=== PATIENT | male | born 1950 | race Caucasian/White ===

== ENCOUNTER 2019-08-10 11:22 | Inpatient (IN) | payer OTHER ==
[~2019-08-10] VITALS: Ht 203.2 cm; Wt 161.7 kg
[2019-08-10] MEDS ORDERED: SODIUM CHLORIDE 0.9% 1,000 ML IV ONE (13:09)
[2019-08-10] MEDS ORDERED: MIDAZOLAM DRIP 50 mg/50mL 50 ML IV SCH (13:44)
[2019-08-10] MEDS ORDERED: ETOMIDATE (2MG/ML) 20ML VIAL IV ONE (13:45)
[2019-08-10] MEDS ORDERED: SUCCINYLCHOLINE CHLORIDE 20 MG/ML 10ML VIAL IV ONE (13:45)
[2019-08-10 14:08] LABS: Basophils # (auto) 0.1 10 ^3/uL (0-0.2); Basophils % (auto) 0.3 % (0.0-2.0); Eosinophils # (auto) 0 10 ^3/uL (0-0.8); Eosinophils % (auto) 0.2 % (0.0-7.0); Hematocrit 40.7 % (41.0-53.0); Hemoglobin 13.4 g/dL (13.5-17.5); Lymphocytes # (auto) 0.7 10 ^3/uL (0.4-5.4); Lymphocytes % (auto) 3.4 % (10.0-50.0); Mean Corpuscular Hemoglobin 30.1 pg (28.0-32.0); Mean Corpuscular Volume 91.2 fL (80.0-100.0); Monocytes # (auto) 1.1 10 ^3/uL (0-1.3); Monocytes % (auto) 5.6 % (0.0-12.0); Neutrophils # (auto) 17.6 10 ^3/uL (1.6-8.6); Neutrophils % (auto) 90.5 % (37.0-80.0); Platelet Count (auto) 230 10^3/uL (140-450); Red Blood Cells 4.47 10^6/uL (4.5-5.90); White Blood Cell 19.5 10^3/uL (4.4-10.8)
[2019-08-10 14:12] LABS: Lactic Acid w/Reflex 2.6 mmol/L (0.4-2.0)
[2019-08-10 14:45] LABS: Albumin 3.5 g/dL (3.4-5.0); Calcium 9.4 mg/dL (8.5-10.1); Potassium 4.4 mmol/L (3.5-5.1)
[2019-08-10] MEDS ORDERED: ACETAMINOPHEN 650 MG RECT SUPP PR ONE (14:47)
[2019-08-10 14:50] LABS: BUN/Creatinine Ratio 13.5; Bilirubin, Total 0.6 mg/dL (0.2-1.0); Total Protein 8.4 g/dL (6.4-8.2)
[2019-08-10 15:01] VITALS: BP 150/61
--- NOTE | 2019-08-10 15:09 | NUR ---
Respiratory note: PATIENT INTUBATED BY PREM FOSTER RRT, WITH A 7.5 ETT, FOR IMPENDING RESPIRATORY FAILURE. TUBE PLACEMENT VERIFIED WITH POSITIVE COLOR CHANGE ON CO2 DETECTOR, BILATERAL BREATH SOUNDS WERE HEARD, AND CONDENSATION WAS SEEN IN THE ETT. TUBE SECURED VIA RAUL AT THE 24CM MARKING AT THE LIP. AWAITING CXR FOR DEPTH CONFIRMATION. PATIENT WAS PLACED ON V14 ESPRIT VENT WITH THE CHARTED SETTINGS. SPO2 100%, LUNG SOUNDS DIM T/O, THICK DRY DARK YELLOW SECRETIONS WHEN SUCTIONED. SPUTUM SAMPLE COLLECTED AND SENT TO THE LAB. SKIN IS WARM/HOT TO THE TOUCH AND THERE IS BILATERAL UPPER EXTREMITY SWELLING, WELL BILATERAL LOWER EXTREMITY SWELLING. A TRIPLE LUMEN CENTRAL LINE WAS PLACED IN THE RIGHT IJ BY DR. ESPITIA AT THIS TIME. PATIENT SHOWING RESPONSE TO TACTILE STIMULI AND IS SEDATED ON A VERSED DRIP. HE IS TOLERATING VENT WELL. VENT PLUGGED INTO RED OUTLET AND ALL ALARMS ARE SET AND AUDIBLE. WILL CONTINUE TO ASSESS PATIENT WELL VENTILATOR FUNCTION. ABG DRAWN AND RESULTS REPORTED TO DR. ESPITIA.
[2019-08-10 15:35] LABS: Urine WBC None Seen /hpf (0 - 3)
[2019-08-10 15:41] LABS: Urine Bacteria NONE SEEN /hpf (None Seen); Urine Blood 1+ /uL (Negative); Urine Hyaline Cast FEW /lpf (0 - 2); Urine Specific Gravity 1.015 (1.001-1.035)
[2019-08-10] MEDS ORDERED: NITROGLYCERIN 0.4 MG SL TAB SL PRN (15:45)
[2019-08-10] MEDS ORDERED: MORPHINE SULF INJ 2 MG/ML SYRINGE 1ML IV PRN (15:45)
[2019-08-10] MEDS ORDERED: fentaNYL Drip 2500mCg/250mlNS 250 ML IV SCH (15:45)
[2019-08-10] MEDS ORDERED: VANCOMYCIN PER PHARMACY 0 MG IV SCH (15:45)
[2019-08-10] MEDS ORDERED: DEXTROSE (50%) 50ML SYRG IV PRN (15:45)
[2019-08-10 15:56] VITALS: BP 127/54
[2019-08-10] MEDS: SODIUM CHLORIDE 0.9% 1,000 ML IV SCH (16:00)
[2019-08-10] MEDS ORDERED: MIDAZOLAM DRIP 50 mg/50mL 50 ML IV ONE (16:13)
[2019-08-10] MEDS: fentaNYL Drip 2500mCg/250mlNS 250 ML IV SCH (16:21)
[2019-08-10] MEDS: ACCU-CHEK COMFORT CURVE STRIP VI SCH ×2 (17:26→23:23)
[2019-08-10] MEDS: VANCOMYCIN 1GM/250ML 250 ML IV SCH (17:27)
[2019-08-10] MEDS: PROPOFOL 100 ML IV SCH ×2 (17:29→22:48)
[2019-08-10] MEDS: InsuLIN REG 1unit/0.01ml Soln (100units/ml) SC SCH ×2 (17:30→23:24)
[2019-08-10 18:40] VITALS: BP 104/34
[2019-08-10 20:30] VITALS: BP 112/48
[2019-08-10 22:30] VITALS: BP 131/50
[2019-08-10 23:07] VITALS: BP 107/46
[2019-08-11] VITALS (12 sets, daily range): BP systolic 102–158; BP diastolic 42–67
[2019-08-11] MEDS: SODIUM CHLORIDE 0.9% 1,000 ML IV SCH ×2 (01:44→11:49)
[2019-08-11] MEDS: VANCOMYCIN 1GM/250ML 250 ML IV SCH (03:00)
[2019-08-11 06:33] LABS: Basophils # (auto) 0 10 ^3/uL (0-0.2); Basophils % (auto) 0.2 % (0.0-2.0); Eosinophils # (auto) 0 10 ^3/uL (0-0.8); Hemoglobin 11.7 g/dL (13.5-17.5); Lymphocytes # (auto) 0.7 10 ^3/uL (0.4-5.4); Lymphocytes % (auto) 4.3 % (10.0-50.0); Mean Corpuscular Hemoglobin 30.1 pg (28.0-32.0); Mean Corpuscular Hgb Conc. 32.5 g/dL (32.0-36.0); Mean Corpuscular Volume 92.6 fL (80.0-100.0); Monocytes # (auto) 1.7 10 ^3/uL (0-1.3); Monocytes % (auto) 10.1 % (0.0-12.0); Neutrophils # (auto) 14.3 10 ^3/uL (1.6-8.6); Neutrophils % (auto) 85.4 % (37.0-80.0); Platelet Count (auto) 185 10^3/uL (140-450); Red Blood Cells 3.88 10^6/uL (4.5-5.90); Red Cell Distribution Width 15.6 % (11.8-14.3); White Blood Cell 16.8 10^3/uL (4.4-10.8)
[2019-08-11 06:56] LABS: Albumin 2.6 g/dL (3.4-5.0); Calcium 8.1 mg/dL (8.5-10.1)
[2019-08-11 06:59] LABS: BUN/Creatinine Ratio 16.3
[2019-08-11 07:02] LABS: Bilirubin, Total 0.7 mg/dL (0.2-1.0); Total Protein 6.8 g/dL (6.4-8.2)
[2019-08-11] MEDS: InsuLIN REG 1unit/0.01ml Soln (100units/ml) SC SCH ×4 (07:57→21:59)
[2019-08-11] MEDS: ACCU-CHEK COMFORT CURVE STRIP VI SCH ×4 (07:58→21:37)
[2019-08-11] MEDS ORDERED: cefTRIAXone SOD 1,000 MG VL ONE (08:41)
[2019-08-11] MEDS ORDERED: cefTRIAXone 1GM/50ML D5W 50 ML IV SCH (09:00)
--- NOTE | 2019-08-11 11:06 | NUR ---
WOUND CARE NOTE: Wound care in to see patient per wound care request regarding left lower wounds that are noted present on admission. Patient is 68 years old male with admitting diagnosis of Sepsis. Patient is resting in hospital bed in ER bed#18. He's intubated,sedated and mechanically ventilated. Patient appears to be in no pain using Angelo Velazquez Faces Pain Scale. His Nito score is 12. Patient's bedside nurse, JILLIAN Schwarz at bedside reported that patient's just transferred from [facility] to hospital bed and no skin Patient's BLE noted with edema and erythema. 1.5x3cm intact serum filled blister noted on patient's Rt knee. His Lt knee has superficial abrasion, area is clean and dry, left open to air. Two draining, open partial thickness wounds noted on patient's left anterodistal lower leg (0.8x0.8cm) and distal anterolateral lower leg (1.5x1.5cm). Wounds are red with with bright, edematous kamila wound, minimal serous drainage noted. No odor noted however, staff reported that odor noted on patient's L lateral lower leg wound earlier prior wound cleaning by his nurse. Cleansed patient's LLE wounds with NS, took specimen for wound culture and sent to lab for processing. Applied Thera honey gauze to open wounds and covered with Opti foam gentle dressing. Photograph of patient's wounds are taken for reference. Patient tolerated. RECOMMENDATION: Nursing to continue with EOD/PRN dressing change to LLE wounds per MD order; BID/PRN cleaning and application of Barrier cream to sacral, buttocks as preventative ,Dietary consult for wounds and low Nito score of 12,frequent turning and repositioning schedule as condition permits, redistribute pressure points with pillows,elevate edematous extremity on pillows, continue monitoring by wound care while patient is hospitalized. Addendum: 08/11/19 at 1455 by Dorie Peres RN Amended: Links added.
[2019-08-11] MEDS ORDERED: VANCOMYCIN 1GM/250ML 250 ML IV SCH (12:00)
[2019-08-11] MEDS ORDERED: CATHFLO ACTIVASE (ALTEPLASE) 2 MG VIAL IV ONE ×2 (14:45→14:48)
[2019-08-11] MEDS: fentaNYL Drip 2500mCg/250mlNS 250 ML IV SCH ×2 (15:58→22:56)
[2019-08-11] MEDS: NOREPINEPHRINE 8 MG/250ML KIT 250 ML IV SCH (17:30)
[2019-08-11] MEDS ORDERED: MEROPENEM 1GM IVPB 100 ML IV ONE (18:00)
[2019-08-11] MEDS ORDERED: LINEZOLID 600MG/300ML 300 ML IV SCH (18:00)
[2019-08-11] MEDS ORDERED: ENOXAPARIN SOD 40 MG/0.4 ML SYRINGE SC ONE (18:00)
[2019-08-11] MEDS: PROPOFOL 100 ML IV SCH ×3 (20:48→23:40)
[2019-08-11] MEDS ORDERED: SODIUM BICARBONATE 8.4 % INJ 50ML VIAL IV ONE (21:15)
[2019-08-11] MEDS ORDERED: FUROSEMIDE 40 MG/4 ML VIAL IV ONE (21:30)
[2019-08-11] MEDS: MEROPENEM 1GM IVPB 100 ML IV SCH (22:39)
[2019-08-12] VITALS (71 sets, daily range): BP systolic 94–155; BP diastolic 38–83
[2019-08-12] MEDS: PROPOFOL 100 ML IV SCH ×7 (02:35→23:20)
[2019-08-12] MEDS ORDERED: LINEZOLID 600MG/300ML 300 ML IV SCH (03:00)
[2019-08-12] MEDS: ACETAMINOPHEN 325 MG TAB PO PRN (03:03)
[2019-08-12] MEDS: MEROPENEM 1GM IVPB 100 ML IV SCH (05:46)
[2019-08-12 06:52] LABS: Basophils # (auto) 0 10 ^3/uL (0-0.2); Basophils % (auto) 0.3 % (0.0-2.0); Eosinophils # (auto) 0.1 10 ^3/uL (0-0.8); Eosinophils % (auto) 0.8 % (0.0-7.0); Hematocrit 33.6 % (41.0-53.0); Hemoglobin 10.9 g/dL (13.5-17.5); Lymphocytes # (auto) 1.1 10 ^3/uL (0.4-5.4); Lymphocytes % (auto) 7.9 % (10.0-50.0); Mean Corpuscular Hemoglobin 30.2 pg (28.0-32.0); Mean Corpuscular Hgb Conc. 32.6 g/dL (32.0-36.0); Mean Corpuscular Volume 92.6 fL (80.0-100.0); Monocytes # (auto) 1.3 10 ^3/uL (0-1.3); Monocytes % (auto) 9.7 % (0.0-12.0); Neutrophils # (auto) 10.9 10 ^3/uL (1.6-8.6); Neutrophils % (auto) 81.3 % (37.0-80.0); Platelet Count (auto) 176 10^3/uL (140-450); Red Blood Cells 3.62 10^6/uL (4.5-5.90); Red Cell Distribution Width 15.8 % (11.8-14.3); White Blood Cell 13.4 10^3/uL (4.4-10.8)
[2019-08-12] MEDS: InsuLIN REG 1unit/0.01ml Soln (100units/ml) SC SCH ×2 (07:00→12:05)
[2019-08-12] MEDS: ACCU-CHEK COMFORT CURVE STRIP VI SCH ×5 (07:00→22:00)
[2019-08-12 07:26] LABS: Albumin 2.4 g/dL (3.4-5.0); BUN/Creatinine Ratio 17.5; Bilirubin, Total 0.5 mg/dL (0.2-1.0); Total Protein 6.7 g/dL (6.4-8.2)
--- NOTE | 2019-08-12 07:50 | NUR ---
Admit to ICU from ER on vent JAH BHATT admitted to ICU via ICU bed on ship ceiler, intubated and being bagged by Respiratory Therapist. PT connected to mechanical ventilator by therapist, LUIS DANIEL at bedside. Patient connected to ICU monitoring, [address] catheter in place, bag flowing to gravity hanging lower than bladder, Central Line to Rt IJ triple lumen, 2 peripheral IV'S, #1 20G Lt Hand and #2 18G Lt Forearm saline locked patent and intact. Pictures where taken from patients bottom, lower extremities, and Rt elbow, dressings placed accordantly. Pt weighed by bedscale 174.6KG, oriented to Nayely Pedersen, primary RN, unit, ventilator and sedation. Vent Settings: Rate 22, VT 550, FIO2 40%, PEEP 8, Size 8.0, 23 @ the lip, and a NG tube to Lt nares at 57 cm to LIS. Drips: Propofol @ 35 mcg/kg/min, Fentanyl @ 200 mcg/hr.
--- NOTE | 2019-08-12 08:30 | NUR ---
XRAY AT BEDSIDE FOR CHEST XRAY.
--- NOTE | 2019-08-12 09:30 | NUR ---
AIR MATTRESS: Bariatric Air bed ordered at [facility] ETA 08/12/19 @ 1526. Reference #[id number]. Please call [facility] at if needed to follow up.
[2019-08-12] MEDS: ENOXAPARIN SOD 40 MG/0.4 ML SYRINGE SC SCH ×2 (10:30→12:10)
--- NOTE | 2019-08-12 10:42 | NUR ---
MD Dr. Maldonado paged for patients Malcom HR 47 BMP, awaiting call back. Stopped Diprivan Gtt.
--- NOTE | 2019-08-12 10:45 | NUR ---
MD Dr. Villarreal Fire Prevention Bureau Captain @ bedside for consult updated on POC and patients status. No new orders from him at the moment.
--- NOTE | 2019-08-12 10:55 | NUR ---
MD Dr. Maldonado at bedside, updated on POC and patients status. Orders to call for Cardiology Consult regarding Bradycardia. Waiting for further orders.
[2019-08-12] MEDS: fentaNYL Drip 2500mCg/250mlNS 250 ML IV SCH ×2 (11:15→22:30)
--- NOTE | 2019-08-12 11:25 | NUR ---
MD Dr. Weber at bedside, updated on POC, patient show no s/s of distress. Awaiting further orders.
--- NOTE | 2019-08-12 12:30 | NUR ---
WOUND CARE Dorie wound care nurse at bedside documenting on wounds. Patient shows no S/S of distress. Awaiting for bariatric.
--- NOTE | 2019-08-12 12:35 | NUR ---
WOUND CARE NOTE: Patient is now in SDU in Rm. 261. Wound care in to see patient to further assess patient's skin. He's intubated,sedated and mechanically ventilated. Patient appears to be in no pain using Angelo Velazquez Faces Pain Scale. His Nito score is 12. Skin assessment done with the assistance of another nurse, JILLIAN Kate and a student nurse forensic chemist. Patient's has generalized edema, more prominently to BLE and feet. Two draining, open partial thickness wounds on patient's left anterodistal lower leg (0.8x0.8cm) and distal anterolateral lower leg (1.5x1.5cm) remain the same, draining moderate amount of serous drainage. Wounds are red with with bright, edematous kamila wound. he's receiving EOD/PRN dressing change to open blisters/draining wound with Thera honey gauze to open wounds Opti foam gentle dressing. His Rt knee continue to display intact serum filled blister (1.5x3cm) and abrasion to L knee now blistered, serum filled (2x2cm) Patient also developed more blisters to L plantar foot ( (2.5x3.5cm) and L heel (7x3cm). To distal lower buttocks noted 6x10 cm intact skin with bright red, light purple non-blanchable skin with erythremic MASD to intragluteal fold. Lower buttocks skin issue could have been from sitting for longer hours, in addition patient is obese and has deep intragluteal fold that may trap moisture in gluteal fold resulting to intertrigo. Patient is receiving BID/PRN cleaning and application of Barrier cream to sacral, buttocks BID/PRN. Per reports, patient had a fall at home and can not get up, got caught up between bed and wall. New photograph of patient's wounds are taken for reference. Patient tolerated well. RECOMMENDATION: Nursing to continue with EOD/PRN dressing change to LLE wounds per MD order; BID/PRN cleaning and application of Z Guard cream to sacral, buttocks per MD order, frequent turning and repositioning schedule as condition permits, redistribute pressure points with pillows,elevate edematous extremity on pillows,Bariatric air bed (ordered) continue monitoring by wound care while patient is hospitalized. Addendum: 08/12/19 at 1642 by Dorie Peres RN Amended: Links added.
--- NOTE | 2019-08-12 13:28 | NUR ---
1320 08/12/19 I faxed transfer order and Notice Regarding Post Stabilization to [facility]-document scanned into [employer]. I faxed today's MD progress notes, CXR, labs, vitals and medication list to [facility].
[2019-08-12] MEDS: CLINDAMYCIN 600MG IV 50 ML IV SCH ×2 (14:17→22:00)
--- NOTE | 2019-08-12 14:35 | NUR ---
MD Mónica Malin SALESPERSON WOMEN'S DRESSES, at bedside for cardiology consult updated on POC and patients status. Informed her that patient lowest HR was 47bpm, order an EKG STAT and to await for more orders.
--- NOTE | 2019-08-12 14:40 | NUR ---
Bariatric rental bed arrived.
--- NOTE | 2019-08-12 14:42 | NUR ---
EKG completed given to Mónica Hector NP, Read: Sinus Rhythm, Prolonged SD interval, Nonspecific IVCD with LAD. HR: 53
--- NOTE | 2019-08-12 16:08 | NUR ---
Est energy needs 4486-4864 kcal (11-13 kcal/kg BW 162.84kg) Est protein needs 95-114g (1-1.2g/kg IBW 94.5kg) Will reassess prn. Addendum: 08/12/19 at [address] Amended: Links added.
[2019-08-12 16:27] LABS: Cholesterol 94 mg/dL (< 200)
[2019-08-12 16:29] LABS: HDL Cholesterol 23 mg/dL (40-59); LDL Cholesterol 48 mg/dL (< 100); Triglycerides 293 mg/dL (< 150)
--- NOTE | 2019-08-12 16:38 | NUR ---
Report called to Mónica WALSH in ICU floor.
[2019-08-12] MEDS ORDERED: DEXTROSE (50%) 50ML SYRG IV PRN (17:30)
[2019-08-12] MEDS: INSULIN LANTUS (GLARGINE) 1 /0.01ml (100units/ml) SC SCH ×2 (17:30→22:00)
[2019-08-12] MEDS ORDERED: Glucerna 1.2 Cal 1Liter BOTTLE GT SCH (17:30)
[2019-08-12] MEDS: NOREPINEPHRINE 8 MG/250ML KIT 250 ML IV SCH (17:30)
--- NOTE | 2019-08-12 17:40 | NUR ---
MITTENS PLACED TO PATIENT UPPER EXTREMITIES PATIENT RASING ARMS TOWARDS ETT.
[2019-08-12] MEDS: FUROSEMIDE 20 MG/2 ML VIAL IV SCH (17:41)
--- NOTE | 2019-08-12 17:45 | NUR ---
patient trans to ICU floor JAH BHATT transferred to ICU RM 109 via BED on cardiac technician and Respirator Therapist bagging patient with ABV, Vent machine transferred with patient. All patient belongings transfer with patient to receiving floor. Pt showed no S/S of distress during transfer.
[2019-08-12] MEDS ORDERED: InsuLIN REG 1unit/0.01ml Soln (100units/ml) SC SCH (18:00)
--- NOTE | 2019-08-12 18:00 | NUR ---
PT TRANSFERRED TO ICU Report received from Nayely WALSH, care assumed. Patient transported via bed by RN and RT. Patient connected to ventilator, tolerating well. Patient connected to bedside monitor. Vital signs remaining stable. Physical assessment complete. Patient transferred onto specialty air mattress. Alarms in place, bed locked in lowest position. Will continue to monitor.
--- NOTE | 2019-08-12 19:00 | NUR ---
SEDATION Sedation increased due to patient shaking, moving arms, and waking up. Will continue to monitor.
[2019-08-12] MEDS: levoFLOXacin 750MG 150 ML IV SCH (19:04)
--- NOTE | 2019-08-12 19:20 | NUR ---
REPORT Report given to Justina WALSH, care endorsed.
--- NOTE | 2019-08-12 19:39 | NUR ---
ADMITTED WITH 2 DAYS OF GENERALIZED WEAKNESS, FEVERS. INTUBATED IN OUR ER. OFFICIAL MD DIAGNOSIS: WANG, ARF RESPIRATORY FAILURE. ETT TO VENTILATOR. LEFT NARE NGT CLAMPED. LUNGS CLEAR. ABDOMEN LARGE, ROUND, SOFT. MOTA IN PLACE DRAINING ADEQUATE AMOUNTS OF CLEAR YELLOW LIQUID. RIJ TLC WITH DIPRIVAN AND FENTANYL. NO VASOPRESSORS. HAS A BLISTER ON THE LEFT PLANTAR FOOT. GENERALIZED 3+ PITTING EDEMA IN ARMS AND LEGS. RIGHT LOWER LEG HAS 2 DRAINING WOUNDS THAT ARE BEING TREATED WITH THERAHONEY. RIGHT KNEE BLISTER. 2 PERIPHERAL IVS. LEFT LEG CELLULITIS. IS ON A BARIATRIC BED. PLAN FOR CPAP TOMORROW. ECHOCARDIOGRAM PENDING. 1ST DEGREE AV BLOCK WITH A OR OF .22
--- NOTE | 2019-08-12 20:00 | NUR ---
LUNG SOUNDS DIMINISHED. NOTHING SUCTIONED FROM THE ETT OR ORALLY. USING BED TO TURN HIM TO HIS RIGHT SIDE. FIRST DEGREE AV BLOCK. NGT CLAMPED. GLUCERNA BOLUS. WOUNDS ON RIGHT LOWER LEG SHOW SEROUS DRNG.
--- NOTE | 2019-08-12 22:00 | NUR ---
ACCUCHECK 391. LANTUS GIVEN. USED BED TO TURN HIM THE OPPOSITE DIRECTION. LEFT LOWER LEG WOUND DRESSINGS REMOVED. WOUND CLEANED WITH WOUND CLEANSER AND FOAM DRESSING REAPPLIED. MODERATE AMOUNT OF SEROUS DRNG. ORAL CARE DONE.NOTHING SUCTIONED FROM THE ETT. NGT RESIDUAL ZERO. BOLUS OF GLUCERNA GIVEN. NPO AFTER MIDNIGHT FOR CPAP TRIAL. LUNGS CLEAR. ABDOMEN : ROUND, LARGE AND SOFT. URINE CLEAR YELLOW.
[2019-08-13] VITALS (103 sets, daily range): BP systolic 102–163; BP diastolic 39–94
[2019-08-13] MEDS: ACCU-CHEK COMFORT CURVE STRIP VI SCH ×6 (00:19→20:00)
--- NOTE | 2019-08-13 00:21 | NUR ---
ACCUCHECK 428. CALL IN TO HOSPITALIST.
--- NOTE | 2019-08-13 00:30 | NUR ---
AGRESSIVE SCALE CHANGED TO Q 4 HOURS. NO EXTRA INSULIN GIVEN.
[2019-08-13] MEDS ORDERED: DEXTROSE (50%) 50ML SYRG IV PRN (01:00)
--- NOTE | 2019-08-13 02:00 | NUR ---
CHG BATH. LUNGS CLEAR. NOTHING SUCTIONED FROM THE ETT. CREAMY SECRETIONS FROM THE ORAL CAVITY. SINUS BRADYCARDIA WITH A FIRST DEGREE AV BLOCK. ALL THE DRAINING WOUND DRESSINGS HAVE BEEN CHANGED. GLUTEAL CLEFT IS DARK RED AND NONBLANCHABLE. MODERATE SIZE DTI NOTICED ON BUTTOCK NEAR GLUTEAL CLEFT. GOOD DANIAL CARE DONE. DANIAL AREA DRIED. LEFT LOWER LEFT LEG IS HOT AND RED. BLISTER ON PLANTAR AREA OF LEFT FOOT AND BOTH KNEE BLISTERS ARE INTACT.
--- NOTE | 2019-08-13 03:00 | NUR ---
AM LABS SENT
[2019-08-13] MEDS ORDERED: InsuLIN REG 1unit/0.01ml Soln (100units/ml) SC SCH (04:00)
[2019-08-13] MEDS: InsuLIN REG 1unit/0.01ml Soln (100units/ml) SC SCH ×5 (04:00→20:00)
[2019-08-13 04:33] LABS: Basophils # (auto) 0 10 ^3/uL (0-0.2); Basophils % (auto) 0.3 % (0.0-2.0); Eosinophils # (auto) 0.2 10 ^3/uL (0-0.8); Eosinophils % (auto) 1.6 % (0.0-7.0); Hematocrit 32.5 % (41.0-53.0); Hemoglobin 10.8 g/dL (13.5-17.5); Lymphocytes # (auto) 1.1 10 ^3/uL (0.4-5.4); Lymphocytes % (auto) 8.7 % (10.0-50.0); Mean Corpuscular Hemoglobin 30.1 pg (28.0-32.0); Mean Corpuscular Hgb Conc. 33.1 g/dL (32.0-36.0); Mean Corpuscular Volume 91.1 fL (80.0-100.0); Monocytes # (auto) 1.1 10 ^3/uL (0-1.3); Monocytes % (auto) 9.4 % (0.0-12.0); Neutrophils # (auto) 9.7 10 ^3/uL (1.6-8.6); Nucleated Red Blood Cells % 0.3 %; Platelet Count (auto) 185 10^3/uL (140-450); Red Blood Cells 3.57 10^6/uL (4.5-5.90); Red Cell Distribution Width 15.2 % (11.8-14.3); White Blood Cell 12.2 10^3/uL (4.4-10.8)
[2019-08-13 04:51] LABS: Albumin 2.2 g/dL (3.4-5.0); Calcium 8.4 mg/dL (8.5-10.1); Potassium 4.6 mmol/L (3.5-5.1)
[2019-08-13 04:56] LABS: BUN/Creatinine Ratio 21.4; Bilirubin, Total 0.4 mg/dL (0.2-1.0); Total Protein 6.7 g/dL (6.4-8.2)
[2019-08-13] MEDS: CLINDAMYCIN 600MG IV 50 ML IV SCH ×3 (05:50→22:00)
[2019-08-13] MEDS: FUROSEMIDE 20 MG/2 ML VIAL IV SCH ×2 (05:52→18:22)
--- NOTE | 2019-08-13 06:00 | NUR ---
USING THE BED TO TURN HIM. IT ACTUALLY WORKS WELL. BACKING DOWN ON SEDATION SLOWLY.
[2019-08-13] MEDS: INSULIN LANTUS (GLARGINE) 1 /0.01ml (100units/ml) SC SCH ×2 (07:25→22:00)
--- NOTE | 2019-08-13 08:40 | NUR ---
ROOM SERVICE WAITER VISIT Kimo ROOM SERVICE WAITER at bedside.
--- NOTE | 2019-08-13 08:57 | NUR ---
ECHO sterilisation technician at bedside.
--- NOTE | 2019-08-13 09:17 | NUR ---
INCREASED FIO2 TO 50% AFTER ABG.
--- NOTE | 2019-08-13 09:24 | NUR ---
PULMONOLOGY PAGED notified of ABG results and desaturation. New Ventilation orders, Med Nebs, and ABG orders received. aware of CXR results. would like RT to advance ETT position.
[2019-08-13] MEDS ORDERED: OPTISON 3ml Vial for INJ IV ONE ×2 (09:33→09:45)
--- NOTE | 2019-08-13 09:46 | NUR ---
SEDATION VACATION Patient awakes on current sedation when moved or any tactile stimuli applied. Patient appears to be calm, keeping sedation low. MD aware of need for increased oxygenation. Will repeat ABG after ventilator changes and assess readiness to wean.
[2019-08-13] MEDS: levoFLOXacin 750MG 150 ML IV SCH (10:05)
--- NOTE | 2019-08-13 10:08 | NUR ---
VENT SETTINGS CHANGED PER DR POWELL ORDERS. PT IS NOW ON AC RR 22, VT 550, PEEP 10, 50% FIO2. ETT ADVANCED AND IS NOW SECURED AT 24 CM AT THE LIP WITH RAUL.
--- NOTE | 2019-08-13 10:30 | NUR ---
ETT ADVANCED AGAIN AND IS NOW SECURED AT 26 CM AT THE LIP WITH RAUL.
--- NOTE | 2019-08-13 10:34 | NUR ---
RADIOLOGY/ETT RT advanced ETT 2 centimeters, CXR performed. RT at bedside. RT advance ETT 2 centimeters. ETT now 26 cm at the lip.
--- NOTE | 2019-08-13 12:02 | NUR ---
MD VISIT at bedside. MD notified of leg swelling, ecchymosis near right foot/digits, CXR, and ventilator settings. No new orders received at this time.
[2019-08-13] MEDS: ALBUTEROL SULF 2.5 MG/0.5ML(0.5%) NEB SOLN NEB SCH ×3 (12:12→23:59)
[2019-08-13] MEDS: IPRATROPIUM BROM 0.5 MG/2.5ML INH SOL NEB SCH ×3 (12:12→23:59)
--- NOTE | 2019-08-13 12:18 | NUR ---
FAMILY Updated patient of plan of care and status. All questions and concerns addressed.
--- NOTE | 2019-08-13 12:22 | NUR ---
1220 08/13/19 I faxed transfer order and Notice Regarding Post Stabilization to [facility]-document scanned into [employer]. I faxed today's MD progress notes, labs, xrays, vitals and medication list to [facility].
--- NOTE | 2019-08-13 12:48 | NUR ---
ABG OBTAINED. FIO2 TITRATED TO 40%. SPO2 94%.
--- NOTE | 2019-08-13 13:15 | NUR ---
1300 08/13/19 I called [facility] and spoke with retail client solutions analyst June-requested to speak with assigned rehabilitation caseworker regarding transfer order. Per June the assigned rehabilitation caseworker is Amee, she is not available at this time. Per June-they did receive today's transfer order and clinical information-they have no ICU beds available-inpatient authorization is extended until 08/14/19 1000.
--- NOTE | 2019-08-13 13:22 | NUR ---
assessment Patient is a 68 year old male who is on a vent in ICU. Per patients Solange patient lived home with her prior to admission and was independent. Patient has a fww at home, but does not need to use it prior to admission. Patients PCP is Dr Vickers in [facility]. Per Solange she called 911 due to patient being weak. Solange is aware of patients ss consult for transfer to [place]. Solange agrees to transfer. I informed Solange I Will continue to monitor and follow up as appropriate. Solange verbalized understanding and agreed to transfer. Addendum: 08/13/19 at 1330 by Heather LOPEZ Amended: Links added.
--- NOTE | 2019-08-13 13:58 | NUR ---
PAGED notified of ABG results. Orders obtained to decrease PEEP back to 8. Orders placed.
--- NOTE | 2019-08-13 14:22 | NUR ---
DECREASED PEEP BACK TO [address] POWELL ORDERS.
[2019-08-13] MEDS: ENOXAPARIN SOD 40 MG/0.4 ML SYRINGE SC SCH (14:28)
--- NOTE | 2019-08-13 14:57 | NUR ---
CARES Complete linen change complete. Skin reassessment performed. New sacral Optifoam placed. Patient repositioned on side, alarms in place. Bed locked in lowest position, call light within reach. Patient opens eyes with activity. No distress noted. Will continue to monitor.
--- NOTE | 2019-08-13 16:38 | NUR ---
MD VISIT at bedside rounding on patient. MD would like to attempt cpap trial tomorrow.
--- NOTE | 2019-08-13 17:24 | NUR ---
WOUND CARE Photograph taken of open blister on right lower calf. Wound care performed and dressing applied. Wound care also performed on left calf.
[2019-08-13] MEDS: NOREPINEPHRINE 8 MG/250ML KIT 250 ML IV SCH (17:30)
[2019-08-13] MEDS: fentaNYL Drip 2500mCg/250mlNS 250 ML IV SCH (18:32)
--- NOTE | 2019-08-13 19:17 | NUR ---
REPORT Report given to Justina WALSH, care endorsed.
--- NOTE | 2019-08-13 19:33 | NUR ---
ADMITTED WITH 2 DAYS OF GENERALIZED WEAKNESS, FEVERS. INTUBATED IN OUR ER. OFFICIAL MD DIAGNOSIS: WANG, ARF RESPIRATORY FAILURE. ETT TO VENTILATOR. LEFT NARE NGT WITH GLUCERNA AT 15CC/HR. OBESE. GENERALIZED EDEMA. LUNGS CLEAR. ORAL CARE DONE. USING THE BED TO TURN HIM. MOTA IN PLACE DRAINING A GOOD AMOUNT OF URINE POST LASIX IV. SINUS HARISH, FIRST DEGREE AV BLOCK. NOTED ECHOCARDIOGRAM RESULTS. ON FENTANYL AND DIPRIVAN FOR SEDATION. [facility] FA[facility]ED. MD TO SIGN TRANSFER PAPERWORK. SKIN: LEFT PLANTAR BLISTER. RIGHT AND LEFT KNEE BLISTER. LEFT LOWER LEG 2 BROKEN BLISTERS WITH THERA HONEY FOAM DRESSING. ONE RIGHT LOWER LEG BROKEN BLISTER SITE THAT IS A THERA HONEY FOAM DRESSING FROM TODAY. NO SCDS DUE TO WOUNDS. HYPERPIGMENTATION OF BOTH LOWER LEGS. ONE TINY OPEN WOUND ON THE LEFT ELBOW. GLUTEAL CLEFT RED. MODERATE SIZE DTI NEAR GLUTEAL CLEFT.
--- NOTE | 2019-08-13 22:00 | NUR ---
REPOSITIONED USING THE BED. ORAL CARE. WOKE UP BRIEFLY AND WENT BACK TO SLEEP. ALL PULSES WEAK. NO BOWEL SOUNDS.NO NGT RESIDUAL. NSR WITHOUT ECTOPY. 1ST DEGREE AV BLOCK. NO CHANGE IN WOUND DRESSINGS.
[2019-08-14] VITALS (59 sets, daily range): BP systolic 109–175; BP diastolic 49–97
--- NOTE | 2019-08-14 | NUR ---
NO NEW CHANGES. DOES WAKE UP MORE EASILY . THEN GOES BACK TO SLEEP. NOTHING SUCTIONED FROM THE ETT. MODERATE CREAMY SECRETIONS FROM THE ORAL CAVITY. TUBE FEEDING STOPPED FOR CPAP TRIAL TODAY. ACCUCHECK STILL HIGH BUT IMPROVING. 1ST DEGREE AV BLOCK WITH A BBB.
[2019-08-14] MEDS: ACCU-CHEK COMFORT CURVE STRIP VI SCH ×6 (00:26→20:16)
[2019-08-14] MEDS: InsuLIN REG 1unit/0.01ml Soln (100units/ml) SC SCH ×6 (00:28→20:18)
[2019-08-14] MEDS: PROPOFOL 100 ML IV SCH (00:55)
--- NOTE | 2019-08-14 02:00 | NUR ---
NO CHANGE IN VENTILATOR SETTINGS. FOLLOWING THE VENTILATOR. LUNGS CLEAR. CREAMY ORAL SECRETIONS. NGT CLAMPED. GOOD URINE OUTPUT. FIRST DEGREE AV BLOCK WITH A BBB.
--- NOTE | 2019-08-14 04:00 | NUR ---
ORAL CARE DONE. SUCTIONED THE ETT FOR NO SECRETIONS. USED THE BED TO TURN HIM. CXR COMPLETED AT 0500. FIRST DEGREE AVB WITH A BBB. IV SHOWS NO REDNESS OR SWELLING.
[2019-08-14 05:43] LABS: Basophils # (auto) 0 10 ^3/uL (0-0.2); Eosinophils # (auto) 0 10 ^3/uL (0-0.8); Monocytes # (auto) 0.9 10 ^3/uL (0-1.3); Neutrophils # (auto) 8.6 10 ^3/uL (1.6-8.6); Nucleated Red Blood Cells % 0.3 %; Platelet Count (auto) 125 10^3/uL (140-450); White Blood Cell 9.8 10^3/uL (4.4-10.8)
[2019-08-14 05:45] LABS: Basophils % (auto) 0.1 % (0.0-2.0); Eosinophils % (auto) 0.4 % (0.0-7.0); Hematocrit 30.4 % (41.0-53.0); Hemoglobin 9.5 g/dL (13.5-17.5); Lymphocytes # (auto) 0.3 10 ^3/uL (0.4-5.4); Lymphocytes % (auto) 2.6 % (10.0-50.0); Mean Corpuscular Hemoglobin 25.6 pg (28.0-32.0); Mean Corpuscular Hgb Conc. 31.1 g/dL (32.0-36.0); Mean Corpuscular Volume 82.1 fL (80.0-100.0); Monocytes % (auto) 9.5 % (0.0-12.0); Neutrophils % (auto) 87.4 % (37.0-80.0); Red Cell Distribution Width 18.9 % (11.8-14.3)
[2019-08-14 06:00] LABS: Potassium 3.2 mmol/L (3.5-5.1)
[2019-08-14] MEDS: CLINDAMYCIN 600MG IV 50 ML IV SCH ×3 (06:00→22:00)
[2019-08-14] MEDS: FUROSEMIDE 20 MG/2 ML VIAL IV SCH (06:00)
--- NOTE | 2019-08-14 06:00 | NUR ---
NO CHANGE IN STATUS
[2019-08-14 06:01] LABS: Calcium 7.4 mg/dL (8.5-10.1)
[2019-08-14] MEDS: ALBUTEROL SULF 2.5 MG/0.5ML(0.5%) NEB SOLN NEB SCH ×3 (06:16→18:15)
[2019-08-14] MEDS: IPRATROPIUM BROM 0.5 MG/2.5ML INH SOL NEB SCH ×3 (06:16→18:15)
[2019-08-14] MEDS: INSULIN LANTUS (GLARGINE) 1 /0.01ml (100units/ml) SC SCH ×2 (07:03→22:00)
--- NOTE | 2019-08-14 07:33 | NUR ---
REPORT RECEIVED, ASSUMING CARE. REMAINS INTUBATED SEDATED WITH DIPRIVAN/FENTANYL INFUSING. VS STABLE.
--- NOTE | 2019-08-14 08:24 | NUR ---
ASSESSMENT COMPLETED, DR POWELL AT BEDSIDE AFTER ASSESSMENT. AWARE DIPRIVAN OFF AT 0800 AND FENTANYL REMAINS ON AT 50 MCG/HR. GAVE OK TO GO AHEAD WITH CPAP TRIAL. FENTANYL DECREASED AT 25MCG/HR AT THIS TIME. PATIENT AWAKENS ON COMMAND AND ABLE TO FOLLOW SOME COMMANDS.
[2019-08-14] MEDS ORDERED: POTASSIUM CHL 20MEQ/100ML 100 ML IV SCH (08:45)
--- NOTE | 2019-08-14 08:45 | NUR ---
DR POWELL AWARE OF POTASSIUM LEVEL. NEW VERBAL ORDER OBTAINED FROM DR POWELL FOR POTASSIUM 20 MEQ IV X 4. VERBAL ORDER READ BACK AND PLACED.
--- NOTE | 2019-08-14 09:22 | NUR ---
RT SHIRLENE PLACED PATIENT ON CPAP TRIAL, TOLERATED WELL
[2019-08-14] MEDS: ENOXAPARIN SOD 40 MG/0.4 ML SYRINGE SC SCH (09:31)
[2019-08-14] MEDS: levoFLOXacin 750MG 150 ML IV SCH (09:31)
[2019-08-14] MEDS ORDERED: SODIUM CHLORIDE 0.9% 1,000 ML IV ONE (10:15)
[2019-08-14] MEDS ORDERED: PANTOPRAZOLE 40 MG/10 ML VIAL INJ IV ONE (10:30)
--- NOTE | 2019-08-14 10:30 | NUR ---
SPOKE WITH DR MORRELL, NEW ORDERS RECEIVED. DR LARIOS RN GAVE POTASSIUM 20 MEQ IV RIDER X1. NS BOLUS STARTED ORDERED. WILL MONITOR PATIENT FOR FLUID OVERLOAD.
--- NOTE | 2019-08-14 11:25 | NUR ---
RT NOTE: PT. EXTUBATED WITHOUT INCIDENT PER DR. POWELL TELEPHONE ORDER. PT. PLACED ON 30% 8L COOL MIST AEROSOL MASK. NO STRIDOR NOTED. BREATH SOUNDS ARE COARSE/DIMINISHED T/O. JILLIAN MULTANI AT BEDSIDE. PT. ABLE TO CLEAR SECRETIONS AT THIS TIME.
[2019-08-14] MEDS: SODIUM CHLORIDE 0.9% 1,000 ML IV SCH (11:40)
--- NOTE | 2019-08-14 11:40 | NUR ---
EXTUBATED AT 1125 BY SHIRLENE RT AFTER SHE OBTAINED ORDER FROM DR POWELL. TOLERATED WELL AND ON 30% COOL AIR MIST MASK.
[2019-08-14 12:14] LABS: INR 1.17 (0.9-1.15)
[2019-08-14 15:02] LABS: Hematocrit 36.4 % (41.0-53.0); Hemoglobin 12.2 g/dL (13.5-17.5)
--- NOTE | 2019-08-14 16:00 | NUR ---
PATIENT REMAINS AWAKE/AXO X 2 ON 2 LPM O2 VIA NC.
--- NOTE | 2019-08-14 18:23 | NUR ---
RN CHARTING AT NURSING STATION AND WITNESSED PATIENT PULLING AT RIGHT IJ TLC, RN RUSHED INTO ROOM AND SAW THAT PATIENT PULLED OUT RIGHT IJ TLC. RN PLACED 4X4 GAUZE AND HELD PRESSURE AT SITE FOR 5 MINS, NO BLEEDING AFTER PRESSURE HELD. PATIENT EDUCATION PROVIDED ON NOT PULLING AT LINES/TUBES. A/O TO PERSON/PLACE. REORIENTED TO DATE TIME REASON. SAFETY MAINTAINED. PATIENT MOANING AND RN ASKED WHY HE IS MOANING HE STATED "BECAUSE I CAN" RN ASKED IF HE WAS IN PAIN AND STATED "YES ALL OVER" BUT REFUSING ANY PAIN MEDS. WOUND CARE COMPLETED ORDERED. Addendum: 08/14/19 at 1827 by Saroj Freedman RN NS AT 100 ML/HR ATTACHED TO LEFT HAND 20 G THAT IS PATENT/INTACT.
[2019-08-14] MEDS: NOREPINEPHRINE 8 MG/250ML KIT 250 ML IV SCH (18:38)
--- NOTE | 2019-08-14 19:46 | NUR ---
ADMITTED ON 08/10/2019. DIAGNOSIS: RESPIRATORY FAILURE, LLE SEPSIS WOUNDS, AKD, NIDDM UNCONTROLLED, HTN AND IS MORBIDLY OBESE. PATIENT IS A DOWNGRADE BLAKE IF BED IS NECESSARY. NEW MICRO RESULTS FOR THE WOUND IS GROWING 3 DIFFERENT TYPES OF BACTERIA. EXTUBATED TODAY AND IS ON 2LNP. CONVERSIVE. ORIENTED TO SELF . FOLLOWS COMMANDS. IS CONFUSED. RECENTLY PULLED OUT HIS CENTRAL LINE. . POTASSIUM REPLACEMENT TODAY. ONE LITER OF NORMAL SALINE AT 100CC/HR GOING. STOPPED THE LOVENOX. STOP ON LASIX. HAS ONE PERIPHERAL IV LEFT FOREARM.
[2019-08-14] MEDS: ACETAMINOPHEN 325 MG TAB PO PRN (20:33)
--- NOTE | 2019-08-14 20:33 | NUR ---
SWALLOW EVAL DONE. NO COUGHING. APPLESAUCE WITH TYLENOL CRUSHED, DID WELL. TOOK A SIP OF WATER AND ONLY CLEARED HIS THROAT. C/O LOWER LEG PAIN.
[2019-08-14] MEDS: PANTOPRAZOLE 40 MG/10 ML VIAL INJ IV SCH (22:00)
--- NOTE | 2019-08-14 22:00 | NUR ---
CALLING OUT SAYING HELLO REPEATEDLY. DIAPHORETIC. TEMP 99.3 RECTALLY. REPOSITIONED USING THE BED. MEDS GIVEN.
[2019-08-15] VITALS (12 sets, daily range): BP systolic 125–162; BP diastolic 53–86
--- NOTE | 2019-08-15 | NUR ---
RESPIRATORY TREATMENT DONE. POSITIONED IN A SITTING POSITION IN HIS BARIATRIC BED. NOW ASLEEP. 2LNP. O2 SAT 97%. LUNGS CLEAR. OCCASIONALLY COUGHS TO CLEAR HIS THROAT. NONPRODUCTIVE COUGH. VSS. NO FEVER. KEEPS SAYING HE HAS TO URINATE AND WE ALWAYS REMIND HIM THAT HE HAS A MOTA. HE ALWAYS RESPONDS" I DON'T CARE, I HAVE TO PEE". NSR WITHOUT ECTOPY. SBP STABLE. PERIPHERAL IV SHOWS NO REDNESS OR SWELLING.
[2019-08-15] MEDS: ALBUTEROL SULF 2.5 MG/0.5ML(0.5%) NEB SOLN NEB SCH ×4 (00:10→17:53)
[2019-08-15] MEDS: IPRATROPIUM BROM 0.5 MG/2.5ML INH SOL NEB SCH ×4 (00:10→17:53)
[2019-08-15] MEDS: ACCU-CHEK COMFORT CURVE STRIP VI SCH ×7 (00:15→23:46)
[2019-08-15] MEDS: InsuLIN REG 1unit/0.01ml Soln (100units/ml) SC SCH ×7 (00:17→23:48)
--- NOTE | 2019-08-15 02:00 | NUR ---
PATIENT KEEPS CALLING OUT TO GET OUT OF BED. THE PATIENT CANNOT EVEN PULL HIS TORSO TO A SITTING POSITION. HE LOOKS FATIGUED. STANDING HIM UP IS NOT AN OPTION RIGHT NOW. NSR WITHOUT ECTOPY. BBB, FIRST DEGREE AV BLOCK. PERIPHERAL IV IS JUST TKO RIGHT NOW. URINE OUTPUT IS GOOD. BED IS IN A TURNED POSITION. AND HE IS CURRENTLY NOT CALLING OUT. KEEPING HIS OXYGEN ON. AFTER HIS EARLIER RESPIRATORY TREATMENT, HIS O2 SAT HAS IMPROVED TO 98%.
--- NOTE | 2019-08-15 03:51 | NUR ---
AM LABS DRAWN. DR NAVARRETE CALLED FOR THE PATIENTS PAIN IN HIS LEGS UNRELIEVED BY TYLENOL. ORDER RECEIVED.
[2019-08-15] MEDS: HYDROcodone-ACET 5/325MG TAB PO PRN ×4 (04:02→23:52)
--- NOTE | 2019-08-15 04:15 | NUR ---
NORCO GIVEN FOR BACK PAIN AND LOWER LEG PAIN. HE IS MOANING AND GENERALLY UNCOMFORTABLE. NSR WITHOUT ECTOPY. SBP STABLE. RR 22-25.
[2019-08-15 04:28] LABS: Basophils # (auto) 0.1 10 ^3/uL (0-0.2); Basophils % (auto) 0.5 % (0.0-2.0); Eosinophils # (auto) 0.4 10 ^3/uL (0-0.8); Eosinophils % (auto) 2.1 % (0.0-7.0); Hematocrit 37.3 % (41.0-53.0); Hemoglobin 12.2 g/dL (13.5-17.5); Lymphocytes # (auto) 1.8 10 ^3/uL (0.4-5.4); Lymphocytes % (auto) 10.3 % (10.0-50.0); Mean Corpuscular Hemoglobin 29.7 pg (28.0-32.0); Mean Corpuscular Hgb Conc. 32.7 g/dL (32.0-36.0); Mean Corpuscular Volume 90.9 fL (80.0-100.0); Monocytes # (auto) 1.7 10 ^3/uL (0-1.3); Monocytes % (auto) 9.9 % (0.0-12.0); Neutrophils # (auto) 13.3 10 ^3/uL (1.6-8.6); Neutrophils % (auto) 77.2 % (37.0-80.0); Nucleated Red Blood Cells % 0.2 %; Platelet Count (auto) 219 10^3/uL (140-450); Red Cell Distribution Width 15.1 % (11.8-14.3); White Blood Cell 17.3 10^3/uL (4.4-10.8)
[2019-08-15 04:34] LABS: Albumin 2.3 g/dL (3.4-5.0); BUN/Creatinine Ratio 18.6; Calcium 8.9 mg/dL (8.5-10.1)
[2019-08-15 04:36] LABS: Bilirubin, Total 0.6 mg/dL (0.2-1.0); Total Protein 7.2 g/dL (6.4-8.2)
--- NOTE | 2019-08-15 05:23 | NUR ---
CHG BATH, COMPLETE LINEN CHANGE, SHAVED, ORAL CARE. REPOSITIONED TO LEFT SIDE.HOB ONLY 20 DEGREES. WENT TO SLEEP.
--- NOTE | 2019-08-15 08:30 | NUR ---
ASSESSMENT COMPLETED SEE INTERVENTIONS ORAL CARE PROVIDED, AWAKE ALERT TO PERSON/PLACE ABLE TO FOLLOW COMMANDS ON 2LPM O2 VIA NC WITH SPO2 WNL.
[2019-08-15] MEDS: SODIUM CHLORIDE 0.9% 1,000 ML IV SCH ×2 (09:52→10:04)
[2019-08-15] MEDS: levoFLOXacin 750MG 150 ML IV SCH (09:53)
[2019-08-15] MEDS: PANTOPRAZOLE 40 MG/10 ML VIAL INJ IV SCH ×2 (09:53→22:02)
--- NOTE | 2019-08-15 11:06 | NUR ---
DR MORRELL AT BEDSIDE, NEW ORDER TO DOWNGRADE TO TELE, AWARE PT REQUEST PLACED. DR LARIOS PATIENT ABLE TO SWALLOW WATER AND CRUSHED MEDS IN APPLESAUCE. AWARE SWALLOW EVAL REQUEST ALREADY IN PLACE.
[2019-08-15] MEDS: INSULIN LANTUS (GLARGINE) 1 /0.01ml (100units/ml) SC SCH ×2 (11:10→22:02)
[2019-08-15] MEDS: CLINDAMYCIN 600MG IV 50 ML IV SCH ×3 (11:10→22:02)
--- NOTE | 2019-08-15 11:14 | NUR ---
SPEECH THERAPIST AT BEDSIDE Addendum: 08/15/19 at 1115 by Saroj Freedman RN FOR SWALLOW GAURAVAL
--- NOTE | 2019-08-15 11:20 | NUR ---
SWALLOW EVALUATED. PATIENT HAS NATURAL TEETH UPPER AND LOWER. ABLE TO FOLLOW COMMANDS. ABLE TO TOLERATE PUREE DIET TEXTURE WITH THIN LIQUIDS WITH NO OVERT SIGNS OR SYMPTOMS OF ASPIRATION. NURSING NOTIFIED.
--- NOTE | 2019-08-15 11:35 | NUR ---
Nutrition Followup/consult Notes Wt: 174.17 kg Pt`s successfully extubated with ST by bedside. pt was NPO when rounded now on pureed diet per ST eval. Est energy needs 7054-2314 kcal (11-13 kcal/kg BW 162.84kg) Est protein needs 95-114g (1-1.2g/kg IBW 94.5kg) Will reassess prn. LABS: BUN 19 H, GLU 307 H, ALB 2.3 L GI: Pt with no BM reported per RN doc. BS: 16, mod risk. Please refer to wound assessment report for full details. PES: 1) Obesity aeb pt BMI is 39.2kg/m2 r/t caloric intake in excess of needs Altered nutrition related labs aeb elevated RFTs, hyperglycemia, hypoalb r/t current and chronic medical conditions Comments 1) Consider CCHO 60 gm puree diet as pt with hx fo DM 2) Refer pt to OPD on DC 3) Continue current plan of care. F/u mod 3-5 days
[2019-08-15] MEDS ORDERED: ENOXAPARIN SOD 40 MG/0.4 ML SYRINGE SC ONE (13:00)
--- NOTE | 2019-08-15 14:16 | NUR ---
PHYSICAL THERAPY AT BEDSIDE, ATTEMPTED TO GET UP TO CHAIR PER PATIENT REQUEST BUT TO WEAK TO SIT IN CHAIR AND COULD NOT STAND. SAT ON EDGE OF BED WITH PT AND RN FOR SAFETY. CLOSED BLISTER TO LEFT HEEL OPENED UPON ATTEMPT TO GET OOB. PLACED BACK INTO BED SAFELY AND NEW LINEN PROVIDED. RN CLEANSED OPEN BLISTER AND NEW DSG IN PLACE. PATIENT SPOKE WITH VIVIANE ON PORTABLE FUN. Addendum: 08/15/19 at 1631 by Saroj Freedman RN BLISTER TO LEFT PLANTAR OPEN, NOT LEFT HEEL
[2019-08-15] MEDS: AMPICILLIN & SULBACTAM SODIUM 3 GM in SODIUM CHL 0.9% 100 ML IV SCH ×2 (15:08→18:25)
--- NOTE | 2019-08-15 19:28 | NUR ---
REPORT GIVEN TO CHEIKH WALSH
--- NOTE | 2019-08-15 20:15 | NUR ---
ASSESSMENT PATIENT IS AWAKE,ALERT AND ORIENTED X2, COOPERATIVE, FOLLOWS COMMANDS. MOVES ALL EXTREMITIES. VITAL SIGNS ARE STABLE.MULTIPLE OPEN BLISTER AREAS WITH DRESSING. DRESSING WAS CHANGED BY NERISSA DESAI RN.
[2019-08-15] MEDS: CIPROFLOXACIN HCL 500 MG TAB PO SCH (22:03)
[2019-08-16] VITALS (10 sets, daily range): BP systolic 106–162; BP diastolic 63–92
[2019-08-16] MEDS: ALBUTEROL SULF 2.5 MG/0.5ML(0.5%) NEB SOLN NEB SCH ×5 (00:05→23:31)
[2019-08-16] MEDS: IPRATROPIUM BROM 0.5 MG/2.5ML INH SOL NEB SCH ×5 (00:05→23:31)
[2019-08-16] MEDS: AMPICILLIN & SULBACTAM SODIUM 3 GM in SODIUM CHL 0.9% 100 ML IV SCH ×4 (00:30→18:58)
--- NOTE | 2019-08-16 01:45 | NUR ---
Paged hospitalist regarding afib. Waiting for call back.
--- NOTE | 2019-08-16 02:12 | NUR ---
CALLED BACK AND ORDERS RECEIVED.
[2019-08-16] MEDS ORDERED: METOPROLOL TARTRATE 1MG/1ML-5ML VIAL IV ONE (02:15)
[2019-08-16] MEDS: METOPROLOL TARTRATE 1MG/1ML-5ML VIAL IV SCH ×3 (02:18→02:30)
--- NOTE | 2019-08-16 02:37 | NUR ---
AFIB EKG SHOWS AFIB WITH RVR. BP 143/63 MMHG. 12 LEAD EKG DONE. PATIENT HAS THE HISTORY OF AFIB. WILL NOTIFY . Addendum: 08/16/19 at 0240 by Jaz Burciaga RN ERROR ON TIME ACTUAL TIME 7500
[2019-08-16] MEDS: ACCU-CHEK COMFORT CURVE STRIP VI SCH ×5 (04:03→20:49)
[2019-08-16] MEDS: InsuLIN REG 1unit/0.01ml Soln (100units/ml) SC SCH ×5 (04:05→20:49)
[2019-08-16] MEDS: CLINDAMYCIN 600MG IV 50 ML IV SCH ×3 (05:39→21:49)
--- NOTE | 2019-08-16 06:15 | NUR ---
PATIENT IS SLEEPING. VITAL SIGNS ARE STABLE.
[2019-08-16] MEDS: INSULIN LANTUS (GLARGINE) 1 /0.01ml (100units/ml) SC SCH ×2 (07:55→22:22)
[2019-08-16] MEDS: HYDROcodone-ACET 5/325MG TAB PO PRN ×3 (07:57→23:58)
--- NOTE | 2019-08-16 08:55 | NUR ---
RECEIVED REPORT AND PATIENT STATUS FOR CONTINUATION OF CARE FROM CARMELO DIRECTOR OF TESTING
--- NOTE | 2019-08-16 09:07 | NUR ---
OPEN RECEIVED REPORT FROM NOC RN. ASSUMED CARE OF TELE STATUS PATIENT, FULL CODE STATUS. PATIENT REMAINS STABLE. REFER TO PRODUCTION BROACHING MACHINE OPERATOR AND VS FLOW SHEET. CONTINUE CARE.
--- NOTE | 2019-08-16 09:25 | NUR ---
TRANSFER TO ROOM 279A: TELE STATUS REPORT GIVEN TO JILLIAN RENO. TRANSFER CARE. PATIENT TAKEN TO ROOM IN SPECIALTY BED. TELE BOX #83. PATIENT A & O X3 CALM AND FOLLOWS COMMANDS. ALL PT BELONGINGS SENT WITH PATIENT. TRANSFER CARE. O2 AT 2L VIA NC.
--- NOTE | 2019-08-16 09:30 | NUR ---
RECEIVED FROM ICU IN A BIG BOY BED WITH O2 AT 3 LITERS NASAL CANNULA SATURATING 95%,AWAKE ALERT ORIENTED MOTA CATHETER IN PLACE,LEFT HAND IV g#20 HEP LOCK, BILATERAL LOWER EXTREMITIES NOTED WITH MULTIPLE WOUND COVERED WITH OPTIFOAM,CELLULITIS AND PITTING EDEMA NOTED.NO C/O PAIN OR DISCOMFORT.CALL LIGHT WITHIN REACH,PATIENT REMINDED INSTRUCTED TO CALL FOR ASSISTANCE,VERBALIZED UNDERSTANDING.
[2019-08-16 10:14] LABS: Basophils # (auto) 0 10 ^3/uL (0-0.2); Basophils % (auto) 0.3 % (0.0-2.0); Eosinophils # (auto) 0.2 10 ^3/uL (0-0.8); Eosinophils % (auto) 2.7 % (0.0-7.0); Hematocrit 37.2 % (41.0-53.0); Hemoglobin 12.4 g/dL (13.5-17.5); Lymphocytes # (auto) 0.8 10 ^3/uL (0.4-5.4); Lymphocytes % (auto) 9.6 % (10.0-50.0); Mean Corpuscular Hemoglobin 30.3 pg (28.0-32.0); Mean Corpuscular Hgb Conc. 33.2 g/dL (32.0-36.0); Mean Corpuscular Volume 91.3 fL (80.0-100.0); Monocytes # (auto) 0.6 10 ^3/uL (0-1.3); Monocytes % (auto) 7.7 % (0.0-12.0); Neutrophils # (auto) 6.6 10 ^3/uL (1.6-8.6); Neutrophils % (auto) 79.7 % (37.0-80.0); Platelet Count (auto) 212 10^3/uL (140-450); Red Blood Cells 4.08 10^6/uL (4.5-5.90); Red Cell Distribution Width 15.3 % (11.8-14.3); White Blood Cell 8.3 10^3/uL (4.4-10.8)
[2019-08-16 10:30] LABS: Calcium 8.8 mg/dL (8.5-10.1)
[2019-08-16 10:34] LABS: BUN/Creatinine Ratio 18.2; Bilirubin, Total 0.4 mg/dL (0.2-1.0); Total Protein 6.6 g/dL (6.4-8.2)
[2019-08-16] MEDS: PANTOPRAZOLE 40 MG/10 ML VIAL INJ IV SCH ×2 (10:48→21:49)
[2019-08-16] MEDS: CIPROFLOXACIN HCL 500 MG TAB PO SCH ×2 (10:49→21:49)
[2019-08-16] MEDS: ENOXAPARIN SOD 40 MG/0.4 ML SYRINGE SC SCH (10:49)
[2019-08-16] MEDS ORDERED: ASPirin 81 mg TAB PO ONE (11:30)
[2019-08-16] MEDS ORDERED: METOPROLOL TARTRATE 25 MG TAB PO ONE (11:30)
--- NOTE | 2019-08-16 11:40 | NUR ---
1130 08/16/19 I faxed transfer order and Notice Regarding Post Stabilization to [facility]-document scanned into [employer]. I faxed today's MD progress notes, labs, vitals, xrays and medication list to [facility].
--- NOTE | 2019-08-16 13:25 | NUR ---
CALLED AND SPOKE TO VIVIANE PATIENT (AFTER PROVIDING PASSWORD) [phone], INFORMED NEEDING HOME MEDICATION LIST OF PATIENT,STATED WILL CALL BACK WITH LIST.
--- NOTE | 2019-08-16 14:28 | NUR ---
CALLED,RECEIVED HOME MEDICATION LIST
--- NOTE | 2019-08-16 14:30 | NUR ---
PHYSICAL THERAPY AT BEDSIDE,ASSISTED PATIENT OOB TO BEDSIDE CHAIR
--- NOTE | 2019-08-16 15:17 | NUR ---
1515 08/16/19 I called [facility] and spoke with e commerce analyst Norah-requested to speak with assigned shoe caser. Per Norah the assigned shoe caser today is Celena and she is not available right now. Per Norah they did received the transfer order and today's clinical information. She will have shoe caser Celena call me back regarding requested authorization.
--- NOTE | 2019-08-16 16:00 | NUR ---
P.T. AT BEDSIDE ASSISTED PATIENT BACK TO BED, TOLERATED ACTIVITY
[2019-08-16] MEDS ORDERED: DOXY100C2 PO (16:40)
[2019-08-16] MEDS ORDERED: ATOR20TA50 PO (16:40)
[2019-08-16] MEDS ORDERED: TORS20TA20 PO (16:40)
[2019-08-16] MEDS ORDERED: DILT30TA24 PO (16:40)
[2019-08-16] MEDS ORDERED: SPIR25TA8 PO (16:40)
[2019-08-16] MEDS ORDERED: LOSA-39 PO (16:40)
[2019-08-16] MEDS ORDERED: ALLO300T2 PO (16:40)
[2019-08-16] MEDS ORDERED: MELO1TAB73 PO (16:40)
[2019-08-16] MEDS ORDERED: GABA100C9 PO (16:40)
[2019-08-16] MEDS ORDERED: SOTA80TA PO (16:40)
--- NOTE | 2019-08-16 17:58 | NUR ---
c/o leg pain and back pain scale of 6/10,medicated with [facility] see Emar
--- NOTE | 2019-08-16 19:21 | NUR ---
Status unchanged report given to incoming NOC shift RN,no distress no discomfort.
--- NOTE | 2019-08-16 20:00 | NUR ---
open note assumed care of pt. upon entering room pt awake, alert and oriented x4. pt on 2L nc no distress noted or expressed. pt denies any pain. pt oriented to this nurse. pt has foster in place, secured, below the waist, draining clear yellow. pt on specialty mattress. pt updated on plan of care. pt bed locked, low and 2x rails up. call light in reach. this nurse to round q1hr and prn. pt encouraged to call as needed.
[2019-08-16] MEDS: METOPROLOL TARTRATE 25 MG TAB PO SCH (22:25)
[2019-08-17] MEDS: ACCU-CHEK COMFORT CURVE STRIP VI SCH ×6 (00:06→19:51)
[2019-08-17] MEDS: InsuLIN REG 1unit/0.01ml Soln (100units/ml) SC SCH ×6 (00:19→20:07)
[2019-08-17] MEDS: AMPICILLIN & SULBACTAM SODIUM 3 GM in SODIUM CHL 0.9% 100 ML IV SCH ×4 (01:37→19:51)
[2019-08-17 02:47] VITALS: BP 149/79
[2019-08-17 05:39] VITALS: BP 147/78
[2019-08-17] MEDS: CLINDAMYCIN 600MG IV 50 ML IV SCH ×3 (06:31→22:11)
[2019-08-17] MEDS: INSULIN LANTUS (GLARGINE) 1 /0.01ml (100units/ml) SC SCH ×2 (06:32→22:15)
[2019-08-17] MEDS: IPRATROPIUM BROM 0.5 MG/2.5ML INH SOL NEB SCH ×3 (06:51→18:45)
[2019-08-17] MEDS: ALBUTEROL SULF 2.5 MG/0.5ML(0.5%) NEB SOLN NEB SCH ×3 (06:51→18:45)
[2019-08-17 09:00] VITALS: BP 134/74
[2019-08-17] MEDS: PANTOPRAZOLE 40 MG/10 ML VIAL INJ IV SCH (09:32)
[2019-08-17] MEDS: ASPirin 81 mg TAB PO SCH (09:33)
[2019-08-17] MEDS: CIPROFLOXACIN HCL 500 MG TAB PO SCH ×2 (09:33→22:12)
[2019-08-17] MEDS: ENOXAPARIN SOD 40 MG/0.4 ML SYRINGE SC SCH (09:34)
[2019-08-17] MEDS: METOPROLOL TARTRATE 25 MG TAB PO SCH ×2 (09:34→22:14)
--- NOTE | 2019-08-17 11:32 | NUR ---
1130 08/17/19 Faxed transfer order and Notice Regarding Post Stabilization to [facility]-documents scanned into [employer]. I faxed today's MD progress notes, labs, vitals, xrays and medication list to [facility].
--- NOTE | 2019-08-17 12:56 | NUR ---
1250 08/17/19 I called [facility] and spoke with performance analyst Kavita-asked to speak with assigned case manager specialist. Per Kavita the assigned case manager specialist is Celena and she is not available right now. Per Kavita they did receive the transfer order but have no beds available-inpatient authorization is extended until 08/18/19 1000.
[2019-08-17 13:00] VITALS: BP 136/86
--- NOTE | 2019-08-17 13:04 | NUR ---
This rn was called to bedside for "pt found sitting on floor". Upon arrival this rn found patient sitting on floor with back against the bed. Patient states he "slid down from the be" and "couldn't catch himself". Patient denies hitting his head, denies acute pain, no bleeding noted. VSS bp 143/56 hr 79 os 96% on 2 l n/c, temp 98.6. Physical therapists paged to bedside and patient placed back in bed with assistance of Suzi lift. Dr Maldonado paged to notify. Will cont to monitor
--- NOTE | 2019-08-17 13:42 | NUR ---
Spoke to Hospitalist MD Maldonado notified of patient status including pt found on floor. New orders received for vasc ultrasound. Cont care
[2019-08-17] MEDS: HYDROcodone-ACET 5/325MG TAB PO PRN (14:27)
[2019-08-17 16:52] VITALS: BP 141/84
--- NOTE | 2019-08-17 19:20 | NUR ---
Opening Shift Note Assumed care of patient, awake and alert, AOx4. No S/S of distress or SOB. Instructed on POC and to call for assist PRN. Call light within reach, bed in low position and fall precautions in place. Will continue to monitor.
[2019-08-17 22:00] VITALS: BP 167/77
[2019-08-18] MEDS: ALBUTEROL SULF 2.5 MG/0.5ML(0.5%) NEB SOLN NEB SCH ×4 (00:25→19:24)
[2019-08-18] MEDS: IPRATROPIUM BROM 0.5 MG/2.5ML INH SOL NEB SCH ×4 (00:25→19:24)
[2019-08-18] MEDS: AMPICILLIN & SULBACTAM SODIUM 3 GM in SODIUM CHL 0.9% 100 ML IV SCH ×4 (00:31→19:00)
[2019-08-18] MEDS: ACCU-CHEK COMFORT CURVE STRIP VI SCH ×6 (00:31→20:00)
[2019-08-18] MEDS: InsuLIN REG 1unit/0.01ml Soln (100units/ml) SC SCH ×6 (00:40→20:00)
--- NOTE | 2019-08-18 01:10 | NUR ---
PATIENT SITTING AT END OF BED PATIENT WAS SITTING AT END OF BED WITH CPAP AND OXIMETER DISCONNECTED. FOUR NURSES HELPED TO REPOSITION PATIENT AFTER THE PATIENT NEXT TO HIM CALLED ABOUT A "BEEPING NOISE". PATIENT SAID "I WANTED TO SIT UP." PATIENT WAS EDUCATED TO NOT GET UP ON EDGE OF BED UNLESS HE HAS ASSISTANCE IN ORDER TO PREVENT A FALL OR ACCIDENT. PATIENT VERBALIZED UNDERSTANDING AND WAS TOLD TO USE CALL LIGHT. CALL LIGHT IS WITHIN REACH AND RAILS UP 2X. RT PAGED TO ASSIST PATIENT BACK ON CPAP, BUT PATIENT SAID HE DID NOT WANT IT ON AFTER ALL.
--- NOTE | 2019-08-18 01:15 | NUR ---
Respiratory note: GOT PAGED TO ROOM TO PLACE PATIENT BACK ON CPAP AFTER HE RIPPED IT OFF HIS FACE AND WAS TRYING TO GET OUT OF BED. RN AT BEDSIDE. PATIENT DOES NOT WANT TO GO BACK ON CPAP. PLACED THE PATIENT ON 2L NC.
--- NOTE | 2019-08-18 03:30 | NUR ---
Wound Under Left Foot Upon moving up in bed, patient's blister opened under left foot. Wound rinsed w/ normal saline, dried, and covered w/ optifoam dressing. No complaints of pain or discomfort.
[2019-08-18 05:00] VITALS: BP 137/66
[2019-08-18] MEDS: CLINDAMYCIN 600MG IV 50 ML IV SCH ×3 (05:36→22:00)
[2019-08-18 06:00] VITALS: BP 153/76
[2019-08-18] MEDS: INSULIN LANTUS (GLARGINE) 1 /0.01ml (100units/ml) SC SCH ×2 (06:54→22:00)
[2019-08-18] MEDS: ASPirin 81 mg TAB PO SCH (09:43)
[2019-08-18] MEDS: CIPROFLOXACIN HCL 500 MG TAB PO SCH ×2 (09:43→22:00)
[2019-08-18] MEDS: PANTOPRAZOLE 40 MG TAB PO SCH (09:44)
[2019-08-18] MEDS: METOPROLOL TARTRATE 25 MG TAB PO SCH (09:44)
[2019-08-18] MEDS: ENOXAPARIN SOD 40 MG/0.4 ML SYRINGE SC SCH (09:45)
[2019-08-18 10:00] VITALS: BP 151/74
--- NOTE | 2019-08-18 12:43 | NUR ---
Nutrition Followup/consult Notes Wt: 161.7 kg [facility] pure[facility] diet per ST eval with adequate PO of 75% x 6 per RN doc. pt with no distress noted per nursing. Est energy needs 4826-2928 kcal (11-13 kcal/kg BW 162.84kg) Est protein needs 95-114g (1-1.2g/kg IBW 94.5kg) Will reassess prn. LABS: GLU 286 H, ALB 2.0 L. GI: Pt had 1 BM 08/16 per RN doc. BS: 18, mod risk. Please refer to wound assessment report for full details. PES: 1) Obesity aeb pt BMI is 39.2kg/m2 r/t caloric intake in excess of needs Altered nutrition related labs aeb elevated RFTs, hyperglycemia, hypoalb r/t current and chronic medical conditions Comments 1) Refer pt to [facility] on DC. 2 Continue current plan of care. F/u mod 3-5 days
[2019-08-18 13:00] VITALS: BP 139/68
--- NOTE | 2019-08-18 14:25 | NUR ---
Cardio at bedside Herzog at bedside, aware of patient's status including ultrasound results. No new orders received at this time. Cont care
--- NOTE | 2019-08-18 16:20 | NUR ---
Patient is combative attempting to hit staff, verbally aggressive, pulled out IV. Refusing to have VS assessed or put back on oxygen. Charge nurse at bedside attempting to talk to patient and calm him down. I spoke to Dr Maldonado and notified of new onset confusion and visual hallucinations noted on patient. MD states she will talk to patient and patient's family as patient states his is "down in the main lobby to pick him up". Fall precs in place and staff at bedside.
[2019-08-18] MEDS ORDERED: SOTALOL HCL 80 MG TAB PO ONE (16:30)
--- NOTE | 2019-08-18 16:46 | NUR ---
New orders received from MD Maldonado to cont home meds Allopurinol, statin, diltiazem, radha, losartan and Ativan prn for anxiety after MD aware of status. collar turner operator Claudia able to obtain IV to left upper arm 20g patient tolerated well and noted to have calmed down and oriented at this time. Patient agrees for CT and techs at bedside for transport. Will resume care on arrival back to unit.
[2019-08-18 16:52] VITALS: BP 129/86
--- NOTE | 2019-08-18 17:13 | NUR ---
Patient back from CT. No distress or sob noted at this time. toll bridge attendant at bedside. Cont care
[2019-08-18] MEDS ORDERED: LORazepam 2MG/ML-1ML VIAL IV PRN (17:15)
[2019-08-18] MEDS: dilTIAZem HCL 60 MG TAB PO SCH (18:00)
[2019-08-18 18:05] LABS: Basophils # (auto) 0 10 ^3/uL (0-0.2); Basophils % (auto) 0.4 % (0.0-2.0); Eosinophils # (auto) 0.1 10 ^3/uL (0-0.8); Eosinophils % (auto) 1.6 % (0.0-7.0); Hematocrit 40.8 % (41.0-53.0); Hemoglobin 13.5 g/dL (13.5-17.5); Lymphocytes # (auto) 1.1 10 ^3/uL (0.4-5.4); Lymphocytes % (auto) 13.3 % (10.0-50.0); Mean Corpuscular Hemoglobin 29.9 pg (28.0-32.0); Mean Corpuscular Hgb Conc. 33.1 g/dL (32.0-36.0); Mean Corpuscular Volume 90.3 fL (80.0-100.0); Monocytes # (auto) 0.7 10 ^3/uL (0-1.3); Monocytes % (auto) 8.6 % (0.0-12.0); Neutrophils # (auto) 6.4 10 ^3/uL (1.6-8.6); Neutrophils % (auto) 76.1 % (37.0-80.0); Nucleated Red Blood Cells % 0.2 %; Platelet Count (auto) 256 10^3/uL (140-450); Red Blood Cells 4.52 10^6/uL (4.5-5.90); Red Cell Distribution Width 14.9 % (11.8-14.3); White Blood Cell 8.4 10^3/uL (4.4-10.8)
--- NOTE | 2019-08-18 18:06 | NUR ---
Patient's IV noted on the bed, he states "MRI" pulled it out. Pressure dressing applied as site noted bleeding. Patient refusing to get "poked" again. Will try again later.
[2019-08-18 18:15] LABS: Albumin 2.5 g/dL (3.4-5.0); BUN/Creatinine Ratio 12.8; Calcium 8.7 mg/dL (8.5-10.1); Potassium 3.9 mmol/L (3.5-5.1)
[2019-08-18 18:18] LABS: Bilirubin, Total 0.5 mg/dL (0.2-1.0); Total Protein 7.5 g/dL (6.4-8.2)
--- NOTE | 2019-08-18 18:35 | NUR ---
1825 08/18/2019 - Contacted [facility] at [phone], spoke with credit and collections analyst Beth, who stated there are no available beds in [facility]. Authorization was approved for continued inpatient stay, hard copy to be faxed.
--- NOTE | 2019-08-18 19:00 | NUR ---
Patient care endorsed endorsed care to Bessie matthew. Patient laying in bed in no acute distress or sob noted. Patient is currently on 3l N/C. Fall precs in place.
--- NOTE | 2019-08-18 19:30 | NUR ---
Opening Shift Note Assumed care of patient, awake, AAOx4. No S/S of distress/SOB or pain. On 2L oxygen via nasal cannula. Patient on bedrest with specialty bed. Bed in lowest locked position, side rails up x2, call light within reach. Patient with no IV access, will obtain. Instructed on POC and to call for assist PRN, will continue to monitor for changes Q1hr and PRN.
[2019-08-18 22:00] VITALS: BP 138/61
[2019-08-18] MEDS: GABAPENTIN 400 MG CAP PO SCH (22:00)
[2019-08-18] MEDS: SOTALOL HCL 80 MG TAB PO SCH (22:00)
[2019-08-18] MEDS: ATORVASTATIN 20 MG TAB PO SCH (22:00)
[2019-08-19] MEDS: AMPICILLIN & SULBACTAM SODIUM 3 GM in SODIUM CHL 0.9% 100 ML IV SCH ×4 (01:00→18:07)
[2019-08-19] MEDS: InsuLIN REG 1unit/0.01ml Soln (100units/ml) SC SCH ×6 (04:00→19:57)
[2019-08-19] MEDS: ACCU-CHEK COMFORT CURVE STRIP VI SCH ×6 (04:00→19:56)
[2019-08-19] MEDS: CLINDAMYCIN 600MG IV 50 ML IV SCH ×3 (05:56→22:00)
[2019-08-19] MEDS: dilTIAZem HCL 60 MG TAB PO SCH ×4 (05:57→18:20)
[2019-08-19] MEDS: GABAPENTIN 400 MG CAP PO SCH ×3 (05:57→22:00)
[2019-08-19] MEDS: INSULIN LANTUS (GLARGINE) 1 /0.01ml (100units/ml) SC SCH ×2 (06:11→22:00)
--- NOTE | 2019-08-19 07:30 | NUR ---
Opening Shift Note Assumed care of patient, awake and alert. No S/S of distress/SOB or pain. Bed is low, locked with 2x side rails up. Call light is within reach. Sitter at bedside for safety. Instructed on POC and to call for assist PRN, will continue to monitor for changes Q1hr and PRN.
[2019-08-19] MEDS: IPRATROPIUM BROM 0.5 MG/2.5ML INH SOL NEB SCH ×4 (08:05→19:20)
[2019-08-19] MEDS: ALBUTEROL SULF 2.5 MG/0.5ML(0.5%) NEB SOLN NEB SCH ×4 (08:05→19:19)
[2019-08-19 09:00] VITALS: BP 128/65
[2019-08-19] MEDS: SOTALOL HCL 80 MG TAB PO SCH ×2 (10:00→22:00)
--- NOTE | 2019-08-19 10:15 | NUR ---
Wound care Patient being seen by nurse. Photos taken for reference and wound care has been done. Will continue to monitor.
[2019-08-19] MEDS: CIPROFLOXACIN HCL 500 MG TAB PO SCH ×2 (10:20→22:00)
[2019-08-19] MEDS: LOSARTAN POTASSIUM 50 MG TAB PO SCH (10:20)
[2019-08-19] MEDS: ASPirin 81 mg TAB PO SCH (10:21)
[2019-08-19] MEDS: ALLOPURINOL 300 MG TAB PO SCH (10:21)
[2019-08-19] MEDS: PANTOPRAZOLE 40 MG TAB PO SCH (10:21)
[2019-08-19] MEDS: ENOXAPARIN SOD 40 MG/0.4 ML SYRINGE SC SCH (10:22)
--- NOTE | 2019-08-19 12:15 | NUR ---
WOUND CARE NOTE: IN TO SEE PATIENT AT THIS TIME FOR WOUND RE-EVALUATION. PATIENT HAS CURRENT MARCE SCORE OF 17. PATIENT CONTINUES TO REST ON SPECIALTY BARIATRIC AIR BED. PATIENT IS ABLE TO ASSIST WITH HIS TURNING/REPOSITIONING. PATIENT HAS BEEN GETTING UP IN CHAIR WITH HELP OF PHYSICAL THERAPY. PATIENT'S MULTIPLE BLISTERS HAVE EVOLVED OPEN, SOME ARE NOW RE-EPITHELIALIZED CLOSED TO BLE, SACRUM/BUTTOCKS, AND LEFT ELBOW. ALL WOUND STATS CAN BE FOUND WITHIN WOUND ASSESSMENT, LINKED TO THIS NOTE. ALL WOUNDS THAT WERE OPEN, DRESSED PER MD ORDER. PATIENT REPOSITIONED INTO SUPINE POSITION FOR LUNCH. SKIN/WOUND CARE PLAN UPDATED. ALL WOUNDS PHOTOGRAPHED AT THIS TIME FOR REFERENCE, PLACED IN CHART. RECOMMEND: CONTINUATION WITH ALL WOUND CARE ORDERS PREVIOUSLY PRESCRIBED BY MD. WOUND CARE TEAM WILL CONTINUE TO MONITOR. Addendum: 08/19/19 at 1758 by Ainsley Vargas RN Amended: Links added.
[2019-08-19] MEDS: HYDROcodone-ACET 5/325MG TAB PO PRN (12:34)
[2019-08-19 13:00] VITALS: BP 153/77
--- NOTE | 2019-08-19 16:20 | NUR ---
Spoke to Pam Spoke to pillowcase cleaner Jl in regards to social service consult for this patient. Consult is for DC planning to home, H.H for PT and safety. Per Pam she was going to start working on it now. She is aware of DC order for today. Will continue to monitor.
--- NOTE | 2019-08-19 16:30 | NUR ---
Foster catheter dc'd Order to discontinue foster catheter. Foster dc'd with clean technique following deflation of balloon. Patient tolerated well with no complaints of pain. Provided patient with urinal at this time. Will continue to monitor.
[2019-08-19 17:00] VITALS: BP 143/70
--- NOTE | 2019-08-19 17:05 | NUR ---
Mrsa swab Collected and sent to lab.
--- NOTE | 2019-08-19 18:05 | NUR ---
1700 08/19/2019 - Faxed to [facility] at [phone], discharge order for home health RN safety and home health PT. Spoke with investment banking analyst Dinora who states they did received 15 pages of clinicals but no request for discharge home health. I refaxed to [facility] at [phone]. I informed Dinora that I would be calling back in about 20 mins.
--- NOTE | 2019-08-19 18:22 | NUR ---
3818 08/19/19- Contacted [facility] at [phone], requesting authorization for continued inpatient stay. Linux Systems Analyst Dinora stated there are still not beds available. Movie Operator Celena was still review clinicals, authorization for continued inpatient stay was still pending.
--- NOTE | 2019-08-19 18:42 | NUR ---
Patient has not voided Patient has not voided since removal of foster catheter. Patient states he has the sensation to urinate but cannot void at this time. Will relay information to NOC RN.
--- NOTE | 2019-08-19 18:47 | NUR ---
Attempted to call family Attempted to call Solange and update her on patient discharge status but no answer.
[2019-08-19 19:22] VITALS: BP_SYST 123; BP_SYST 128; BP_DIAS 65; BP_DIAS 72
--- NOTE | 2019-08-19 19:37 | NUR ---
6594 08/19/19 - Contacted [facility] to follow on home health orders. Per Jig And Fixture Repairer Casa, faxed documents were received and case operator Celena working on authorization.
--- NOTE | 2019-08-19 19:40 | NUR ---
Opening Shift Note Assumed care of patient, awake, A/O x4. No S/S of distress/SOB or pain. Bed in lowest locked position, pt on specialty mattress, 2 L NC, Dressings clean dry and intact, safety precautions reinforced and in place, call light within reach. Instructed on POC, and to call for assist PRN, will continue to monitor for changes Q1hr and PRN. Signed: 08/20/19 at 0420 by JESUS COVARRUBIAS <Co-Signature Required> Co-Signed: 08/20/19 at 0420 by Kassidy Rush RN RN
[2019-08-19 22:00] VITALS: BP 152/78
[2019-08-19] MEDS: ATORVASTATIN 20 MG TAB PO SCH (22:00)
[2019-08-20] MEDS: IPRATROPIUM BROM 0.5 MG/2.5ML INH SOL NEB SCH ×2 (00:12→07:42)
[2019-08-20] MEDS: ALBUTEROL SULF 2.5 MG/0.5ML(0.5%) NEB SOLN NEB SCH ×2 (00:12→07:42)
[2019-08-20] MEDS: AMPICILLIN & SULBACTAM SODIUM 3 GM in SODIUM CHL 0.9% 100 ML IV SCH ×2 (01:53→07:00)
[2019-08-20 05:00] VITALS: BP 138/71
[2019-08-20] MEDS: InsuLIN REG 1unit/0.01ml Soln (100units/ml) SC SCH ×3 (05:40→08:08)
[2019-08-20] MEDS: ACCU-CHEK COMFORT CURVE STRIP VI SCH ×3 (06:52→08:04)
[2019-08-20] MEDS: CLINDAMYCIN 600MG IV 50 ML IV SCH (06:52)
[2019-08-20] MEDS: dilTIAZem HCL 60 MG TAB PO SCH ×2 (06:53)
[2019-08-20] MEDS: GABAPENTIN 400 MG CAP PO SCH (06:54)
[2019-08-20] MEDS: INSULIN LANTUS (GLARGINE) 1 /0.01ml (100units/ml) SC SCH (07:00)
--- NOTE | 2019-08-20 07:30 | NUR ---
Opening Shift Note Assumed care of patient, awake and alert. No S/S of distress/SOB or pain. Patient has multiple skin issues. All dressings are C/D/I (see interventions). Bed is low, locked with 2x side rails up. Call light is within reach. Instructed on POC and to call for assist PRN, will continue to monitor for changes Q1hr and PRN.
--- NOTE | 2019-08-20 08:38 | NUR ---
Paging optoelectronics engineer social work supervisor For update on authorization for home health. This patient has a discharge order. Waiting for call back.
--- NOTE | 2019-08-20 08:44 | NUR ---
Spoke with Briana Received call back from power generation plant operator social security assessor Briana. Provided her with [facility] contact information. She will be contacting [facility] for update on authorization for home health/PT. Will continue to monitor.
[2019-08-20] MEDS: ALLOPURINOL 300 MG TAB PO SCH (09:27)
[2019-08-20] MEDS: CIPROFLOXACIN HCL 500 MG TAB PO SCH (09:27)
[2019-08-20] MEDS: LOSARTAN POTASSIUM 50 MG TAB PO SCH (09:28)
[2019-08-20] MEDS: PANTOPRAZOLE 40 MG TAB PO SCH (09:28)
[2019-08-20] MEDS: SOTALOL HCL 80 MG TAB PO SCH (09:29)
[2019-08-20] MEDS: ASPirin 81 mg TAB PO SCH (09:29)
[2019-08-20] MEDS: ENOXAPARIN SOD 40 MG/0.4 ML SYRINGE SC SCH (09:29)
[2019-08-20 09:41] VITALS: BP 138/71
--- NOTE | 2019-08-20 10:01 | NUR ---
Received call back Spoke with Briana regarding home health. She spoke with a textile machinery sales representative at [facility] and per [facility] it is okay to discharge patient today and [facility] will follow up with patient to set up home health.
--- NOTE | 2019-08-20 10:03 | NUR ---
Firearms Specialist Received a page from JILLIAN Cherry at 8:38am regarding patient home health. Informed JILLIAN Cherry i will contact [facility]. Placed Call to [facility] at 8:40am spoke to Caitlyn. Per Caitlyn Auger Machine Offbearer Kiki schedule starts at 9:00am. Informed Caitlyn I will follow up. Placed another call at 9:30 spoke to JILLIAN Elizabeth with [facility] advising me she will contact me with updates. Received a page from [facility] at 9:52 advising me they will contact patient with accepting home health agency and the agency will make arrangement with patient after discharge. Per [facility] patient can discharge home today. Informed JILLIAN Cherry.
[2019-08-20 10:24] VITALS: BP 137/77
--- NOTE | 2019-08-20 10:47 | NUR ---
Wound care photos Taken by wound care nurse yesterday at 12:15pm.
--- NOTE | 2019-08-20 11:17 | NUR ---
Ambulating Patient ambulating in hallway with assistance of 2 physical therapist. Patient is using walker for ambulation. Per patient he has a walker and oxygen at home. Will proceed with discharge plans.
--- NOTE | 2019-08-20 12:14 | NUR ---
Discharge instructions given as ordered. Encourage to follow up with PMD as instructed. All questions and concerns addressed. Patient verbalized understanding. IV removed with catheter intact, pressure dressing applied. Telemetry unit returned to ICU. Patient taken to vehicle via wheelchair with all personal belongings, accompanied by staff. No distress noted at time of departure.
== END 2019-08-20 12:14 | disposition home health service (06) | DRG 871 ==
LOC: ER 11:22 → EDUNIT# 11:22 → EDBD 11:22 → OVERFLOW 11:23 → DOU IN ICU 08-12 07:51 → ICU WEST 08-12 17:52 → TELE-WESTW 08-16 09:25
PROVIDERS: ADMIT Nurse Practitioner Acute Care; ATTEND Internal Medicine
PROC: 02HV33Z Insertion of Infusion Device into Superior Vena Cava, Percutaneous Approach (ICD-10-PCS; 2019-08-10)
PROC: 5A1945Z Respiratory Ventilation, 24-96 Consecutive Hours (ICD-10-PCS; 2019-08-10)
PROC: 0BH17EZ Insertion of Endotracheal Airway into Trachea, Via Natural or Artificial Opening (ICD-10-PCS; 2019-08-10)
PROC: 5A09357 Assistance with Respiratory Ventilation, Less than 24 Consecutive Hours, Continuous Positive Airway Pressure (ICD-10-PCS; principal; 2019-08-17)
PROC: 5A09357 Assistance with Respiratory Ventilation, Less than 24 Consecutive Hours, Continuous Positive Airway Pressure (ICD-10-PCS; 2019-08-19)
PROC: 5A09357 Assistance with Respiratory Ventilation, Less than 24 Consecutive Hours, Continuous Positive Airway Pressure (ICD-10-PCS; 2019-08-20)
DX: A41.01 Sepsis due to Methicillin susceptible Staphylococcus aureus (principal); N17.0 Acute kidney failure with tubular necrosis; J96.21 Acute and chronic respiratory failure with hypoxia; J96.22 Acute and chronic respiratory failure with hypercapnia; J18.9 Pneumonia, unspecified organism; I50.33 Acute on chronic diastolic (congestive) heart failure; E87.1 Hypo-osmolality and hyponatremia; L03.116 Cellulitis of left lower limb; Z99.11 Dependence on respirator [ventilator] status; J44.1 Chronic obstructive pulmonary disease with (acute) exacerbation; I13.0 Hypertensive heart and chronic kidney disease with heart failure and stage 1 through stage 4 chronic kidney disease, or unspecified chronic kidney disease; J44.0 Chronic obstructive pulmonary disease with (acute) lower respiratory infection; J98.11 Atelectasis; R65.20 Severe sepsis without septic shock; Z20.828 Contact with and (suspected) exposure to other viral communicable diseases; E11.65 Type 2 diabetes mellitus with hyperglycemia; E66.01 Morbid (severe) obesity due to excess calories; E78.5 Hyperlipidemia, unspecified; E11.22 Type 2 diabetes mellitus with diabetic chronic kidney disease; R00.1 Bradycardia, unspecified; I27.21 Secondary pulmonary arterial hypertension; E11.51 Type 2 diabetes mellitus with diabetic peripheral angiopathy without gangrene; I48.91 Unspecified atrial fibrillation; N18.9 Chronic kidney disease, unspecified; Z79.4 Long term (current) use of insulin; Z68.39 Body mass index [BMI] 39.0-39.9, adult; Z88.8 Allergy status to other drugs, medicaments and biological substances
CPT/HCPCS: 31500; 36415; 36569; 36600; 70450; 71045; 80048; 80053; 80061; 80202; 81001; 82728; 82805; 82962; 83036; 83605; 83615; 83880; 84443; 84484; 85014; 85018; 85025; 85379; 85610; 86850; 86900; 86901; 87040; 87070; 87077; 87081; 87186; 87205; 87804; 87880; 92610; 93005; 93306; 93925; 93970; 94002; 94003; 94640; 94660; 97116; 97163; 97530; 99291; C9113; G0378; J0330; J0696; J1815; J1956; J2185; J2250; J2704; J3480; J3490; Q9956

== ENCOUNTER 2019-08-21 23:41 | Inpatient (IN) | payer OTHER ==
[~2019-08-21] VITALS: Ht 185.4 cm; Wt 158.7 kg
[~2019-08-21 23:41] MED LIST: ALLO300T2 PO; ATOR20TA50 PO; DILT30TA24 PO; DOXY100C2 PO; GABA100C9 PO; LOSA-39 PO; MELO1TAB73 PO; SOTA80TA PO; SPIR25TA8 PO; TORS20TA20 PO
[2019-08-22 01:10] LABS: Basophils # (auto) 0.1 10 ^3/uL (0-0.2); Basophils % (auto) 0.5 % (0.0-2.0); Eosinophils # (auto) 0.1 10 ^3/uL (0-0.8); Eosinophils % (auto) 1.1 % (0.0-7.0); Hemoglobin 13.1 g/dL (13.5-17.5); Lymphocytes # (auto) 1.7 10 ^3/uL (0.4-5.4); Lymphocytes % (auto) 12.6 % (10.0-50.0); Mean Corpuscular Hemoglobin 29.9 pg (28.0-32.0); Mean Corpuscular Hgb Conc. 32.9 g/dL (32.0-36.0); Mean Corpuscular Volume 90.8 fL (80.0-100.0); Neutrophils # (auto) 10.9 10 ^3/uL (1.6-8.6); Neutrophils % (auto) 78.8 % (37.0-80.0); Platelet Count (auto) 284 10^3/uL (140-450); Red Cell Distribution Width 15.4 % (11.8-14.3); White Blood Cell 13.9 10^3/uL (4.4-10.8)
[2019-08-22 01:28] LABS: INR 1.23 (0.9-1.15); Partial Thromboplastin Time 34.5 sec (23.64-32.05)
[2019-08-22 01:32] LABS: Alanine Aminotransferase 30 U/L (16-61); Albumin 2.7 g/dL (3.4-5.0); Anion Gap 6 (5-15); Aspartate Aminotransferase 28 U/L (15-37); Blood Urea Nitrogen 28 mg/dL (7-18); Calcium 8.4 mg/dL (8.5-10.1); Carbon Dioxide 29 mmol/L (21-32); Chloride 105 mmol/L (98-107); GFR African American 50 mL/min; GFR Non-African American 41 mL/min; Glucose 105 mg/dL (74-106); Potassium 4.1 mmol/L (3.5-5.1); Sodium 140 mmol/L (136-145)
[2019-08-22 01:37] LABS: Alkaline Phosphatase 80 U/L (45-117); Bilirubin, Total 0.4 mg/dL (0.2-1.0); Total Protein 7.7 g/dL (6.4-8.2)
[2019-08-22] MEDS ORDERED: DEXTROSE (50%) 50ML SYRG IV PRN ×2 (03:45→18:00)
[2019-08-22] MEDS ORDERED: ACETAMINOPHEN 325 MG TAB PO PRN (03:45)
[2019-08-22] MEDS ORDERED: HYDROcodone-ACET 5/325MG TAB PO PRN (03:45)
[2019-08-22] MEDS ORDERED: MORPHINE SULF INJ 2 MG/ML SYRINGE 1ML IV PRN (03:45)
[2019-08-22] MEDS ORDERED: ONDANSETRON HCL 4 MG/2 ML VIAL IV PRN (03:45)
[2019-08-22] MEDS ORDERED: DOCUSATE SOD 100 MG CAP PO PRN (03:45)
[2019-08-22] MEDS ORDERED: LORazepam 0.5 MG TAB PO PRN (03:45)
[2019-08-22] MEDS: methylPREDNISolone SOD SUCC 125 MG/2 ML VL IV SCH ×2 (04:12→11:12)
[2019-08-22] MEDS ORDERED: LOSARTAN POTASSIUM 50 MG TAB PO ONE (04:15)
[2019-08-22] MEDS ORDERED: dilTIAZem HCL 60 MG TAB PO ONE (04:15)
[2019-08-22] MEDS: ACCU-CHEK COMFORT CURVE STRIP VI SCH ×12 (04:23→22:38)
[2019-08-22] MEDS: cefTRIAXone 1GM/50ML D5W 50 ML IV SCH ×2 (04:38→11:12)
[2019-08-22] MEDS: ALBUTEROL SULF 2.5 MG/0.5ML(0.5%) NEB SOLN NEB PRN (04:43)
[2019-08-22] MEDS: IPRATROPIUM BROM 0.5 MG/2.5ML INH SOL NEB PRN (04:43)
[2019-08-22 04:49] VITALS: BP 177/85
[2019-08-22] MEDS: AZITHROMYCIN 500MG/ 250ML 250 ML IV SCH ×2 (05:51→11:12)
[2019-08-22] MEDS: dilTIAZem HCL 60 MG TAB PO SCH ×4 (06:00→23:55)
[2019-08-22 06:30] VITALS: BP 144/66
[2019-08-22 08:21] LABS: Basophils # (auto) 0 10 ^3/uL (0-0.2); Basophils % (auto) 0.2 % (0.0-2.0); Eosinophils # (auto) 0 10 ^3/uL (0-0.8); Eosinophils % (auto) 0.1 % (0.0-7.0); Hematocrit 43.1 % (41.0-53.0); Hemoglobin 13.7 g/dL (13.5-17.5); Lymphocytes # (auto) 0.9 10 ^3/uL (0.4-5.4); Lymphocytes % (auto) 5.6 % (10.0-50.0); Mean Corpuscular Hemoglobin 29.4 pg (28.0-32.0); Mean Corpuscular Hgb Conc. 31.8 g/dL (32.0-36.0); Mean Corpuscular Volume 92.3 fL (80.0-100.0); Monocytes # (auto) 0.2 10 ^3/uL (0-1.3); Monocytes % (auto) 1.4 % (0.0-12.0); Neutrophils # (auto) 14.6 10 ^3/uL (1.6-8.6); Neutrophils % (auto) 92.7 % (37.0-80.0); Nucleated Red Blood Cells % 0.1 %; Platelet Count (auto) 288 10^3/uL (140-450); Red Blood Cells 4.67 10^6/uL (4.5-5.90); Red Cell Distribution Width 15.7 % (11.8-14.3); White Blood Cell 15.8 10^3/uL (4.4-10.8)
[2019-08-22 08:43] LABS: Calcium 9.1 mg/dL (8.5-10.1); Potassium 4.4 mmol/L (3.5-5.1)
[2019-08-22 08:46] LABS: Lactic Acid w/Reflex 2.5 mmol/L (0.4-2.0)
[2019-08-22 08:48] LABS: BUN/Creatinine Ratio 17.7
[2019-08-22] MEDS ORDERED: FUROSEMIDE 40 MG/4 ML VIAL IV SCH (10:00)
[2019-08-22] MEDS ORDERED: SPIRONOLACTONE 25 MG TAB PO SCH (10:00)
[2019-08-22] MEDS: ALLOPURINOL 300 MG TAB PO SCH (11:14)
[2019-08-22] MEDS: TORSEMIDE 20 MG TAB PO SCH ×2 (11:14→22:38)
[2019-08-22] MEDS: ATORVASTATIN 20 MG TAB PO SCH (11:15)
[2019-08-22] MEDS: SOTALOL HCL 80 MG TAB PO SCH ×2 (11:15→22:38)
[2019-08-22] MEDS: LOSARTAN POTASSIUM 50 MG TAB PO SCH (11:16)
[2019-08-22] MEDS ORDERED: InsuLIN REG 1unit/0.01ml Soln (100units/ml) SC SCH ×3 (17:00→22:00)
[2019-08-22 17:02] LABS: Urine Bacteria FEW /hpf (None Seen); Urine Blood 2+ /uL (Negative); Urine Hyaline Cast FEW /lpf (0 - 2); Urine Mucus FEW (None Seen); Urine Specific Gravity 1.007 (1.001-1.035); Urine WBC 1 /hpf (0 - 3)
[2019-08-22] MEDS ORDERED: INSULIN LANTUS (GLARGINE) 1 /0.01ml (100units/ml) SC ONE ×2 (18:00→23:00)
[2019-08-22] MEDS: SPIRONOLACTONE 25 MG TAB PO SCH (18:16)
[2019-08-22] MEDS: InsuLIN REG 1unit/0.01ml Soln (100units/ml) SC SCH (18:18)
[2019-08-22] MEDS: Glucerna Carbsteady SHAKE Vanilla 8oz PO SCH (19:11)
[2019-08-22 20:50] VITALS: BP 145/66
[2019-08-22] MEDS ORDERED: InsuLIN REG 1unit/0.01ml Soln (100units/ml) SC ONE (23:00)
[2019-08-23 05:10] VITALS: BP 120/50
[2019-08-23] MEDS: ACCU-CHEK COMFORT CURVE STRIP VI SCH ×5 (06:23→11:46)
[2019-08-23] MEDS: SPIRONOLACTONE 25 MG TAB PO SCH (06:23)
[2019-08-23] MEDS: dilTIAZem HCL 60 MG TAB PO SCH ×2 (06:23→12:00)
[2019-08-23] MEDS: InsuLIN REG 1unit/0.01ml Soln (100units/ml) SC SCH ×3 (06:37→11:47)
[2019-08-23 07:14] LABS: Basophils # (auto) 0.1 10 ^3/uL (0-0.2); Basophils % (auto) 0.5 % (0.0-2.0); Eosinophils # (auto) 0 10 ^3/uL (0-0.8); Hematocrit 40.3 % (41.0-53.0); Hemoglobin 13.2 g/dL (13.5-17.5); Lymphocytes % (auto) 6.6 % (10.0-50.0); Mean Corpuscular Hemoglobin 29.6 pg (28.0-32.0); Mean Corpuscular Hgb Conc. 32.9 g/dL (32.0-36.0); Mean Corpuscular Volume 90.1 fL (80.0-100.0); Monocytes % (auto) 6.9 % (0.0-12.0); Neutrophils # (auto) 12.5 10 ^3/uL (1.6-8.6); Nucleated Red Blood Cells % 0.2 %; Platelet Count (auto) 314 10^3/uL (140-450); Red Blood Cells 4.47 10^6/uL (4.5-5.90); Red Cell Distribution Width 15.9 % (11.8-14.3); White Blood Cell 14.5 10^3/uL (4.4-10.8)
[2019-08-23 07:39] LABS: Albumin 2.9 g/dL (3.4-5.0); BUN/Creatinine Ratio 22.8; Bilirubin, Total 0.4 mg/dL (0.2-1.0); Calcium 8.9 mg/dL (8.5-10.1); Total Protein 8.3 g/dL (6.4-8.2)
[2019-08-23] MEDS: ALBUTEROL SULF 2.5 MG/0.5ML(0.5%) NEB SOLN NEB PRN (07:41)
[2019-08-23] MEDS: IPRATROPIUM BROM 0.5 MG/2.5ML INH SOL NEB PRN (07:41)
[2019-08-23] MEDS: Glucerna Carbsteady SHAKE Vanilla 8oz PO SCH ×2 (08:00→12:00)
[2019-08-23 09:00] VITALS: BP 124/57
[2019-08-23] MEDS: methylPREDNISolone SOD SUCC 125 MG/2 ML VL IV SCH (10:00)
[2019-08-23] MEDS: ATORVASTATIN 20 MG TAB PO SCH (10:00)
[2019-08-23] MEDS: SOTALOL HCL 80 MG TAB PO SCH (10:00)
[2019-08-23] MEDS: LOSARTAN POTASSIUM 50 MG TAB PO SCH (10:00)
[2019-08-23] MEDS: AZITHROMYCIN 500MG/ 250ML 250 ML IV SCH (10:00)
[2019-08-23] MEDS: TORSEMIDE 20 MG TAB PO SCH (10:00)
[2019-08-23] MEDS: ALLOPURINOL 300 MG TAB PO SCH (10:00)
[2019-08-23] MEDS: cefTRIAXone 1GM/50ML D5W 50 ML IV SCH (10:00)
[2019-08-23 10:47] LABS: Free T3 2.19 pg/mL (2.3-4.2); Free T4 (Free Thyroxine) 1.05 ng/dL (0.89-1.76)
[2019-08-23 11:52] VITALS: BP 124/57
== END 2019-08-23 12:42 | disposition home or self-care (01) | DRG 871 ==
LOC: ER 23:41 → EDBD 23:41 → OVERFLOW 23:42 → TELE-WESTW 08-22 21:53
PROVIDERS: ADMIT Hospitalist; ATTEND Internal Medicine
PROC: 5A09357 Assistance with Respiratory Ventilation, Less than 24 Consecutive Hours, Continuous Positive Airway Pressure (ICD-10-PCS; principal; 2019-08-22)
PROC: 5A09357 Assistance with Respiratory Ventilation, Less than 24 Consecutive Hours, Continuous Positive Airway Pressure (ICD-10-PCS; 2019-08-23)
DX: A41.9 Sepsis, unspecified organism (principal); G92 Toxic encephalopathy; J96.21 Acute and chronic respiratory failure with hypoxia; L03.116 Cellulitis of left lower limb; I13.0 Hypertensive heart and chronic kidney disease with heart failure and stage 1 through stage 4 chronic kidney disease, or unspecified chronic kidney disease; E44.0 Moderate protein-calorie malnutrition; J98.11 Atelectasis; Z68.42 Body mass index [BMI] 45.0-49.9, adult; D68.69 Other thrombophilia; I50.32 Chronic diastolic (congestive) heart failure; E11.22 Type 2 diabetes mellitus with diabetic chronic kidney disease; E11.649 Type 2 diabetes mellitus with hypoglycemia without coma; Z20.828 Contact with and (suspected) exposure to other viral communicable diseases; E66.01 Morbid (severe) obesity due to excess calories; E11.51 Type 2 diabetes mellitus with diabetic peripheral angiopathy without gangrene; I48.0 Paroxysmal atrial fibrillation; N18.3 Chronic kidney disease, stage 3 (moderate); W19.XXXA Unspecified fall, initial encounter; S16.1XXA Strain of muscle, fascia and tendon at neck level, initial encounter; S09.90XA Unspecified injury of head, initial encounter; Y93.89 Activity, other specified; Y92.89 Other specified places as the place of occurrence of the external cause; Y99.8 Other external cause status; Z91.14 Patient's other noncompliance with medication regimen; J44.9 Chronic obstructive pulmonary disease, unspecified; T38.0X5A Adverse effect of glucocorticoids and synthetic analogues, initial encounter
CPT/HCPCS: 36415; 36600; 71045; 80048; 80053; 80061; 80320; 81001; 82805; 82962; 83036; 83605; 83735; 83880; 84439; 84443; 84481; 84484; 85025; 85610; 85730; 87040; 87081; 87086; 93005; 94640; 94660; 96365; 96368; 96372; 96375; G0378; J0696; J1815

== ENCOUNTER 2020-08-01 09:06 | Emergency (ER) | payer OTHER ==
[~2020-08-01] VITALS: Ht 177.8 cm; Wt 181.4 kg
[~2020-08-01 09:06] MED LIST changes: +DILT30TA PO; -DILT30TA24 PO
[2020-08-01] MEDS ORDERED: methylPREDNISolone SOD SUCC 125 MG/2 ML VL IV ONE (09:15)
[2020-08-01] MEDS ORDERED: FUROSEMIDE 40 MG/4 ML VIAL IV ONE (09:15)
[2020-08-01] MEDS ORDERED: cefTRIAXone 1GM/50ML D5W 50 ML IV ONE (09:30)
[2020-08-01] MEDS ORDERED: CLINDAMYCIN 600MG IV 50 ML IV ONE (09:30)
[2020-08-01 10:16] LABS: Basophils # (auto) 0 10 ^3/uL (0-0.2); Basophils % (auto) 0.1 % (0.0-2.0); Eosinophils # (auto) 0 10 ^3/uL (0-0.8); Eosinophils % (auto) 0.1 % (0.0-7.0); Hematocrit 42.9 % (41.0-53.0); Lymphocytes # (auto) 0.8 10 ^3/uL (0.4-5.4); Lymphocytes % (auto) 3.8 % (10.0-50.0); Mean Corpuscular Hemoglobin 29.3 pg (28.0-32.0); Mean Corpuscular Hgb Conc. 32.6 g/dL (32.0-36.0); Mean Corpuscular Volume 89.9 fL (80.0-100.0); Monocytes # (auto) 0.7 10 ^3/uL (0-1.3); Monocytes % (auto) 3.3 % (0.0-12.0); Neutrophils # (auto) 20.4 10 ^3/uL (1.6-8.6); Neutrophils % (auto) 92.7 % (37.0-80.0); Nucleated Red Blood Cells % 0.1 %; Platelet Count (auto) 194 10^3/uL (140-450); Red Blood Cells 4.77 10^6/uL (4.5-5.90); Red Cell Distribution Width 17.2 % (11.8-14.3)
[2020-08-01 10:51] LABS: Albumin 3.3 g/dL (3.4-5.0); Anion Gap 7 (5-15); Blood Urea Nitrogen 22 mg/dL (7-18); Carbon Dioxide 24 mmol/L (21-32); Chloride 104 mmol/L (98-107); Glucose 187 mg/dL (74-106); Potassium 5.2 mmol/L (3.5-5.1); Sodium 135 mmol/L (136-145)
[2020-08-01 10:57] LABS: Alanine Aminotransferase 20 U/L (16-61); Alkaline Phosphatase 104 U/L (45-117); Aspartate Aminotransferase 30 U/L (15-37); BUN/Creatinine Ratio 15.4; Bilirubin, Total 0.9 mg/dL (0.2-1.0); GFR African American 63 mL/min; GFR Non-African American 52 mL/min; Total Protein 8.2 g/dL (6.4-8.2)
[2020-08-01 10:59] LABS: INR 2.15 (0.9-1.15); Partial Thromboplastin Time 31.6 sec (23.0-31.2)
[2020-08-01 11:06] LABS: Urine Bacteria NONE SEEN /hpf (None Seen); Urine Blood 2+ /uL (Negative); Urine Specific Gravity 1.007 (1.001-1.035); Urine WBC 1 /hpf (0 - 3)
[2020-08-01 11:18] LABS: Lactic Acid w/Reflex 2.3 mmol/L (0.4-2.0)
[2020-08-01] MEDS ORDERED: SODIUM CHLORIDE 0.9% 1,000 ML IV ONE (11:45)
[2020-08-01] MEDS ORDERED: FUROSEMIDE 20 MG/2 ML VIAL IV ONE (14:00)
[2020-08-01] MEDS ORDERED: DEXTROSE (50%) 50ML SYRG IV ONE (14:00)
[2020-08-01] MEDS ORDERED: SODIUM ZIRCONIUM CYCL 10 GM PAK PO ONE (14:00)
[2020-08-01] MEDS ORDERED: InsuLIN REG 1unit/0.01ml Soln (100units/ml) IV ONE (14:00)
[2020-08-01] MEDS ORDERED: CALCIUM GLUC 1,000mg/50ml-NS 50 ML IV ONE (14:00)
[2020-08-01] MEDS ORDERED: ALBUTEROL SULF 2.5 MG/0.5ML(0.5%) NEB SOLN NEB ONE (14:00)
[2020-08-01 15:43] VITALS: BP 108/51
== END 2020-08-01 16:17 | disposition short-term general hospital (02) ==
LOC: EDBD 09:06 → ER 09:06
DX: A41.9 Sepsis, unspecified organism (principal); I11.0 Hypertensive heart disease with heart failure; I50.9 Heart failure, unspecified; E87.5 Hyperkalemia; L03.116 Cellulitis of left lower limb; L03.115 Cellulitis of right lower limb; E11.9 Type 2 diabetes mellitus without complications; J44.9 Chronic obstructive pulmonary disease, unspecified; Z20.822 Contact with and (suspected) exposure to COVID-19
CPT/HCPCS: 36415; 71045; 80053; 81001; 83605; 83880; 84484; 85025; 85610; 85730; 87040; 87426; 93005; 94640; 96361; 96365; 96366; 96367; 96368; 96375; 99291; J0610; J0696; J1815; J1940; J2930; J3490; J7030

== ENCOUNTER 2022-10-20 08:24 | Emergency (ER) | payer OTHER ==
[~2022-10-20] VITALS: Ht 182.9 cm; Wt 181.0 kg
[~2022-10-20 08:24] MED LIST changes: -DOXY100C2 PO; +DOXY100C4 PO; +GABA-1308 PO; -GABA100C9 PO; -LOSA-39 PO; +LOSA100T58 PO; -MELO1TAB73 PO; +MELO7.5T7 PO
[2022-10-20] MEDS ORDERED: DEXTROSE (50%) 50ML SYRG IV ONE ×3 (08:46→11:15)
[2022-10-20] MEDS ORDERED: DEXTROSE 50% SYRINGE 50 ML IV ONE (08:46)
[2022-10-20 09:15] VITALS: PULSE 52; RESP 22; O2SAT 98
[2022-10-20] MEDS ORDERED: CLINDAMYCIN 600MG IV 50 ML IV ONE (09:15)
[2022-10-20] MEDS ORDERED: SODIUM CHLORIDE 0.9% 500 ML IVB ONE (09:15)
[2022-10-20 09:34] LABS: Basophils # (auto) 0 10 ^3/uL (0-0.2); Basophils % (auto) 0.5 % (0.0-2.0); Eosinophils # (auto) 0.2 10 ^3/uL (0-0.8); Eosinophils % (auto) 2.6 % (0.0-7.0); Hematocrit 33.7 % (41.0-53.0); Hemoglobin 11.3 g/dL (13.5-17.5); Lymphocytes % (auto) 13.7 % (10.0-50.0); Mean Corpuscular Hemoglobin 30.8 pg (28.0-32.0); Mean Corpuscular Hgb Conc. 33.4 g/dL (32.0-36.0); Mean Corpuscular Volume 92.4 fL (80.0-100.0); Monocytes # (auto) 0.6 10 ^3/uL (0-1.3); Monocytes % (auto) 7.7 % (0.0-12.0); Neutrophils # (auto) 5.5 10 ^3/uL (1.6-8.6); Neutrophils % (auto) 75.5 % (37.0-80.0); Red Blood Cells 3.65 10^6/uL (4.5-5.90); Red Cell Distribution Width 14.7 % (11.8-14.3); White Blood Cell 7.4 10^3/uL (4.4-10.8)
[2022-10-20 09:52] LABS: Alanine Aminotransferase 12 U/L (7-40); Alkaline Phosphatase 93 U/L (46-116); Anion Gap 7.6 (5-15); Aspartate Aminotransferase 22 U/L (13-40); BUN/Creatinine Ratio 17.8 (10.0-20.0); Blood Urea Nitrogen 45 mg/dL (9-23); Calcium 8.2 mg/dL (8.5-10.1); Carbon Dioxide 24.4 mmol/L (20-30); Chloride 109 mmol/L (98-107); Glucose 105 mg/dL (74-106); INR 2.48 (0.9-1.15); Magnesium 1.1 mg/dL (1.6-2.6); Potassium 4.6 mmol/L (3.5-5.1); Prothrombin Time 24.5 sec (9.3-11.8); Sodium 141 mmol/L (136-145)
[2022-10-20 09:53] LABS: Bilirubin, Total 0.5 mg/dL (0.2-1.0); Total Protein 7.3 g/dL (5.7-8.2)
[2022-10-20 10:52] LABS: Urine Bacteria NONE SEEN /hpf (None Seen); Urine Blood 3+ /uL (Negative); Urine Clarity Clear (Clear); Urine Color Colorless (Yellow); Urine Protein, UAD Negative (Negative); Urine Specific Gravity 1.007 (1.001-1.035); Urine Urobilinogen Normal (Negative); Urine WBC 3 /hpf (0 - 3)
[2022-10-20] MEDS ORDERED: ACCU-CHEK COMFORT CURVE STRIP VI ONE (11:15)
[2022-10-20] MEDS ORDERED: DEXTROSE 10% 1,000 ML IV SCH (11:15)
[2022-10-20 14:40] VITALS: BP 158/87; PULSE 62; RESP 20; TEMP 98.2; O2SAT 98
== END 2022-10-20 11:39 | disposition short-term general hospital (02) ==
LOC: ER 08:24 → EDBD 08:24 → ER 11:39
DX: E11.649 Type 2 diabetes mellitus with hypoglycemia without coma (principal); L03.116 Cellulitis of left lower limb; L03.115 Cellulitis of right lower limb; R00.1 Bradycardia, unspecified; M19.90 Unspecified osteoarthritis, unspecified site; J44.9 Chronic obstructive pulmonary disease, unspecified; E78.5 Hyperlipidemia, unspecified; I11.0 Hypertensive heart disease with heart failure; I50.9 Heart failure, unspecified; Z90.49 Acquired absence of other specified parts of digestive tract; Z98.890 Other specified postprocedural states; Z79.899 Other long term (current) drug therapy; Z88.8 Allergy status to other drugs, medicaments and biological substances
CPT/HCPCS: 36415; 70450; 71045; 80053; 81001; 82962; 83605; 83735; 83880; 84484; 85025; 85610; 85730; 87040; 93005; 96365; 96367; 96376; 99285; J3490; J7042; 96375